=== PATIENT | male | born 1955 | race Caucasian/White ===

== ENCOUNTER → 2016-10-17 | Outpatient (CLI) | payer OTHER | LOC: LABWHC1 14:21 | PROVIDERS: ATTEND Urology | DX: R97.20 Elevated prostate specific antigen [PSA] (principal) | CPT/HCPCS: 36415; 84153 ==

== ENCOUNTER → 2018-04-22 | Outpatient (CLI) | payer BC ==
--- NOTE | 2018-04-22 18:28 | MR ---
EXAMINATION TYPE: MR knee LT wo con DATE OF EXAM: 04/22/2018 COMPARISON: None HISTORY: Lt knee pain x 8 mos, no trauma TECHNIQUE: Multiplanar, multisequence imaging of the left knee is performed without IV contrast. FINDINGS: MEDIAL MENISCUS: There is linear increased signal in the posterior horn of the medial meniscus which extends to the articular surface LATERAL MENISCUS: There is some abnormal diffuse increased signal in the posterior horn of the latera l meniscus possibly due to mucoid degeneration CRUCIATE LIGAMENTS: The anterior and posterior cruciate ligaments are intact and unremarkable. COLLATERAL LIGAMENTS: The medial collateral ligament and lateral collateral ligament complex are inta ct and unremarkable. EXTENSOR MECHANISM: Visualized quadriceps and patellar tendons are intact. EFFUSION: There is a suprapatellar joint effusion. POPLITEAL CYST: No popliteal/rossi cyst. TRICOMPARTMENT SPACES: Joint space loss present in the medial compartment CARTILAGE: Grade IV chondromalacia medial compartment, grade 3 to grade IV chondromalacia posterior p atella BONE MARROW SIGNAL: Reactive marrow signal changes in the subchondral medial femoral condyle and prox imal tibia OTHER: Subcutaneous edema is present. Some edema signal present at the origin of the medial gastrocn emius tendon origin IMPRESSION: Osteoarthritis. Findings compatible with degenerative tear posterior horn medial meniscus . Possible strain or partial tear origin of the medial belly of the gastrocnemius.
== END | disposition home or self-care (01) ==
LOC: RADMRIMAIN 16:35
PROVIDERS: ATTEND Family Medicine
DX: M17.12 Unilateral primary osteoarthritis, left knee (principal)

== ENCOUNTER → 2018-05-12 | Outpatient (CLI) | payer BC ==
--- NOTE | 2018-05-12 11:43 | EST ---
EXERCISE STRESS AGE: 63 SEX: M HT: 5'6" WT: 195 PROTOCOL: Cardiolite Osbaldo Stress Test STAGE: II DURATION OF EXERCISE: 8:00 HEART RATE REST: 58 BLOOD PRESSURE REST: 154/95 MAXIMUM HEART RATE ACHIEVED: 142 MAXIMUM BLOOD PRESSURE: 175/103 85% MPHR: 134 100% MPHR: 158 METS: 9.7 INDICATIONS: Pre-operative. CLINICAL INFORMATION: Baseline EKG shows sinus rhythm, poor R-wave progression. Normal axis, normal intervals. Patient exercised on Osbaldo protocol for a total of 8 minutes, achieving 9 METS, 89% of predicted maximal heart rate without chest pain or diagnostic ST-segment depression. CONCLUSION: 1. Above-average exercise tolerance. 2. Negative stress test by EKG criteria. 3. Cardiolite portion of the stress test will be reported separately. MMODL / IJN: [id number] /
--- NOTE | 2018-05-12 11:54 | NM ---
EXAMINATION TYPE: NM stress cardiolite complete DATE OF EXAM: 05/12/2018 COMPARISON: NONE HISTORY: Precordial chest pain and abnormal EKG TECHNIQUE: After the intravenous administration of 9.63 mCi Tc 99m Sestamibi - Rest images obtained 41 minutes post injection. The patient exercised using a BEATRIZ protocol and 1 minute prior to peak exercise was injected with 25.7 mCi Tc 99m Sestamibi - Stress images obtained 10 minutes post injecti on. FINDINGS: Targeted heart rate was achieved during performance of the study. Review of stress and rest SPECT michelle ges demonstrates no distinct perfusion abnormality. Gated analysis shows normal wall motion with an estimated left ventricular ejection fraction of 68 %. IMPRESSION: No scintigraphic evidence for reversible ischemia
== END | disposition home or self-care (01) ==
LOC: RADNMMAIN 08:26
PROVIDERS: ATTEND Family Medicine
DX: R94.31 Abnormal electrocardiogram [ECG] [EKG] (principal)
CPT/HCPCS: 93017; 78452; A9500

== ENCOUNTER → 2018-05-15 | Outpatient (CLI) | payer BC ==
--- NOTE | 2018-05-16 11:19 | ECHOF ---
Referral Reason:R94.31 abnormal EKG MEASUREMENTS -------- HEIGHT: 391.2 cm WEIGHT: 39.5 kg BP: RVIDd: 3.2 cm (< 3.3) IVSd: 1.1 cm (0.6 - 1.1) LVIDd: 4.2 cm (3.9 - 5.3) LVPWd: 1.1 cm (0.6 - 1.1) IVSs: 1.5 cm LVIDs: 2.8 cm LVPWs: 1.4 cm LA Diam: 3.4 cm (2.7 - 3.8) LAESV Index (A-L): 12.78 ml/m Ao Diam: 3.1 cm (2.0 - 3.7) AV Cusp: 2.2 cm (1.5 - 2.6) MV EXCURSION: 18.048 mm (> 18.000) MV EF SLOPE: 61 mm/s (70 - 150) EPSS: 1.0 cm MV E Power: 1.00 m/s MV DecT: 192 ms MV A Power: 0.85 m/s MV E/A Ratio: 1.17 RAP: 5.00 mmHg RVSP: 31.23 mmHg FINDINGS -------- Sinus rhythm. This was a technically good study. The left ventricular size is normal. There is borderline concentric left ventricular hypertrophy. Overall left ventricular systolic function is normal with, an EF between 60 - 65 %. The right ventricle is normal in size. Normal LA size by volume 22+/-6 ml/m2. The right atrium is normal in size. The aortic valve is trileaflet and appears structurally normal. There is trace mitral regurgitation. Mild tricuspid regurgitation present. Right ventricular systolic pressure is normal at < 35 mmHg. Trace/mild (physiologic) pulmonic regurgitation. The aortic root size is normal. Normal inferior vena cava with normal inspiratory collapse consistent with estimated right atrial pre ssure of 5 mmHg. There is no pericardial effusion. CONCLUSIONS -------- 1. Sinus rhythm. 2. This was a technically good study. 3. The left ventricular size is normal. 4. There is borderline concentric left ventricular hypertrophy. 5. Overall left ventricular systolic function is normal with, an EF between 60 - 65 %. 6. The right ventricle is normal in size. 7. Normal LA size by volume 22+/-6 ml/m2. 8. The right atrium is normal in size. 9. The aortic valve is trileaflet and appears structurally normal. 10. There is trace mitral regurgitation. 11. Mild tricuspid regurgitation present. 12. Right ventricular systolic pressure is normal at < 35 mmHg. 13. Trace/mild (physiologic) pulmonic regurgitation. 14. The aortic root size is normal. 15. Normal inferior vena cava with normal inspiratory collapse consistent with estimated right atrial pressure of 5 mmHg. 16. There is no pericardial effusion. RUBBER BALL FINISHER: Elysia Lozano RDCS
== END ==
LOC: RADECHMAIN 16:24
PROVIDERS: ATTEND Family Medicine
DX: I07.1 Rheumatic tricuspid insufficiency (principal); I37.1 Nonrheumatic pulmonary valve insufficiency
CPT/HCPCS: 93306

== ENCOUNTER → 2019-01-01 | Outpatient (CLI) | payer BC ==
--- NOTE | 2019-01-01 22:37 | MR ---
EXAMINATION TYPE: MR shoulder RT wo con DATE OF EXAM: 01/01/2019 COMPARISON: NONE HISTORY: Lt shoulder pain/hx of dislocation April 20 TECHNIQUE: Multiplanar, multisequence imaging of the right shoulder is performed without contrast. FINDINGS: Rotator Cuff: Full thickness retracted tears of anterior two thirds supraspinatus tendon up to level of the acromion coronal image 15. Infraspinatus tendon remains intact. Intact subscapularis tendon. P erhaps mild fat replaced atrophy supraspinatus tendon. Acromioclavicular Joint: Moderate to severe narrowing and moderate capsular hypertrophy. Dystrophic a cromion morphology unremarkable. Glenohumeral Joint: High riding humeral head. Moderate to severe superior narrowing. Small effusion. Labrum: The superior labrum is blunted with increased signal. Biceps Tendon: The long head of biceps is in normal location within bicipital groove. Intra-articular portion is not well visualized. Bone marrow signal: No focal abnormal marrow signal is appreciated. Other: No additional significant abnormality is appreciated. IMPRESSION: Significant full-thickness retracted tear of at least the anterior half of the supraspina tus tendon.
== END | disposition home or self-care (01) ==
LOC: RADMRIMAIN 15:59
PROVIDERS: ATTEND Family Medicine
DX: M75.121 Complete rotator cuff tear or rupture of right shoulder, not specified as traumatic (principal)

== ENCOUNTER → 2019-05-08 | Outpatient (CLI) | payer BC ==
--- NOTE | 2019-05-09 18:32 | US ---
EXAMINATION TYPE: US prostate transrectal DATE OF EXAM: 05/08/2019 COMPARISON: NONE CLINICAL HISTORY: R97.20 Elevated PSA. elevated PSA. This examination was performed using the transrectal probe. EXAM MEASUREMENTS: Gland Size: 4.7 x 3.2 x 5.0 cm Volume: 39.3 Predicted PSA: 4.7 Actual PSA (if available):6.1 Heterogenous with calcifications seen. IMPRESSION: Heterogenous prostate gland. No discrete suspicious nodule on ultrasound. Predicted PSA = volume x 0.12 ng/ml Calculated Volume = 0.5236 x L x W x H
== END | disposition home or self-care (01) ==
LOC: RADUSWWP 06:44
PROVIDERS: ATTEND Family Medicine
DX: N42.89 Other specified disorders of prostate (principal); R97.20 Elevated prostate specific antigen [PSA]
CPT/HCPCS: 76872

== ENCOUNTER 2021-03-17 04:09 | Inpatient (IN) | payer BC, MEDICARE ==
[2021-03-17] MEDS ORDERED: SODIUM CHLORIDE 0.9% 1,000 ML IV STA (04:37)
[2021-03-17] MEDS ORDERED: NITROGLYCERIN SL TABS 0.4 MG TAB SUBLINGUAL PRN ×2 (04:37→06:31)
[2021-03-17] MEDS ORDERED: ASPIRIN 81 MG PO STA ×2 (04:37)
[2021-03-17] MEDS ORDERED: NITROGLYCERIN SL TABS 0.4 MG TAB SUBLINGUAL STA (04:37)
[2021-03-17] MEDS ORDERED: MORPHINE SULFATE 4 MG/ML SYRINGE IV STA (04:37)
[2021-03-17] MEDS ORDERED: MORPHINE SULFATE 4 MG/ML SYRINGE IV PRN (04:37)
--- NOTE | 2021-03-17 04:41 | ED ---
Chest Pain HPI - General Chief Complaint: Chest Pain Stated Complaint: Chest Pain Time Seen by Provider: 03/17/21 04:12 Source: patient, RN notes reviewed, old records reviewed Mode of arrival: ambulatory Limitations: no limitations - History of Present Illness Initial Comments: This is a 66-year-old male to the emergency department for evaluation of chest. Patient originally presented to primary care early this morning with chest pain on first offices of the day. Some bedtime regards to his doctor's office chest pain resolved he did have labs and EKG done EKG done at that time of her normal. Patient was called later in the day for abnormal lab values unsure of which. Patient presents to ER tonight chest pain beginning this evening persistin gpatient has no history of high blood pressure high cholesterol or diabetes. Nonsmoker with no significant family history MD Complaint: chest pain -: hour(s) Onset: during rest Pain Location: substernal, left chest Pain Radiation: LUE Severity: severe Severity scale (1-10): 8 Quality: tightness, heaviness Consistency: intermittent Improves With: nothing Worsens With: nothing Anginal Symptoms: diaphoresis, dyspnea Other Symptoms: palpitations Treatments Prior to Arrival: none - Related Data Home Medications Medication Instructions Recorded Confirmed Albuterol Sulfate [Ventolin HFA] 90 mcg PO DAILY PRN 05/10/15 05/12/15 Cholecalciferol [Vitamin D3] 2,000 unit PO DAILY 05/10/15 05/12/15 Multivitamins, Thera [Multivitamin] 1 tab PO DAILY 05/10/15 05/12/15 Ranitidine HCl [Zantac] 150 mg PO BID 05/10/15 05/12/15 Allergies Allergy/AdvReac Type Severity Reaction Status Date / Time No Known Allergies Allergy Verified 03/17/21 04:18 Review of Systems ROS Statement: Those systems with pertinent positive or pertinent negative responses have been documented in the HPI. ROS Other: All systems not noted in ROS Statement are negative. EKG Findings - EKG Comments: EKG Findings:: EKG shows acute ST elevated ID, inferior ST elevation with anterior ST depression Past Medical History Past Medical History: Cancer, Pneumonia Additional Past Medical History / Comment(s): bladder History of Any Multi-Drug Resistant Organisms: None Reported Past Surgical History: Bladder Surgery Additional Past Surgical History / Comment(s): bladder ca sx, "kidney scope" Past Anesthesia/Blood Transfusion Reactions: No Reported Reaction Past Psychological History: No Psychological Hx Reported Smoking Status: Former smoker Past Alcohol Use History: Daily Past Drug Use History: None Reported - Past Family History Mother Family Medical History: Cancer, Diabetes Mellitus Additional Family Medical History / Comment(s): ovarian ca "something to do with her reproductive"; heart murmur Father Additional Family Medical History / Comment(s): AAA General Exam Limitations: no limitations General appearance: anxious Head exam: Present: atraumatic, normocephalic, normal inspection Eye exam: Present: normal appearance, PERRL, EOMI. Absent: scleral icterus, conjunctival injection, periorbital swelling ENT exam: Present: normal exam, mucous membranes moist Neck exam: Present: normal inspection. Absent: tenderness, meningismus, lymphadenopathy Respiratory exam: Present: normal lung sounds bilaterally. Absent: respiratory distress, wheezes, rales, rhonchi, stridor Cardiovascular Exam: Present: regular rate, normal rhythm, normal heart sounds. Absent: systolic murmur, diastolic murmur, rubs, gallop, clicks GI/Abdominal exam: Present: soft, normal bowel sounds. Absent: distended, tenderness, guarding, rebound, rigid Extremities exam: Present: normal inspection, full ROM, normal capillary refill. Absent: tenderness, pedal edema, joint swelling, calf tenderness Back exam: Present: normal inspection Neurological exam: Present: alert, oriented X3, CN II-XII intact Psychiatric exam: Present: normal affect, normal mood Skin exam: Present: warm, dry, intact, normal color. Absent: rash Course Vital Signs 03/17/21 03/17/21 03/17/21 04:11 04:38 04:43 Temperature 98.1 F 97.7 F Pulse Rate 74 71 61 Respiratory 18 16 18 Rate Blood Pressure 177/142 189/133 186/120 O2 Sat by Pulse 100 100 100 Oximetry 03/17/21 03/17/21 05:02 05:11 Temperature Pulse Rate 67 68 Respiratory 16 16 Rate Blood Pressure 148/96 131/81 O2 Sat by Pulse 100 100 Oximetry - Reevaluation(s) Reevaluation #1: 03/17/21 04:57 Medical record is reviewed STEMI was paged on patient arrival Reevaluation #2: 03/17/21 05:57 Blood pressure is improved pain is controlled Reevaluation #3: 03/17/21 05:57 Patient informed results, questions answered - Consultations Consultation #1: Spoke with Dr. 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 Patient has CTA negative for dissection elevated blood pressure now improved ST elevation ID on EKG Critical Care Time Critical Care Time: Yes Total Critical Care Time: 31 Disposition Clinical Impression: Chest pain, ST elevation myocardial infarction (STEMI) Disposition: ADMITTED IP TO THIS HOSP Condition: Serious Is patient prescribed a controlled substance at d/c from ED?: No
[2021-03-17] MEDS ORDERED: LABETALOL 5 MG/ML VIAL MDV IVP STA (04:53)
[2021-03-17] MEDS: ATORVASTATIN 80 MG TAB PO SCH (05:01)
[2021-03-17 05:02] LABS: Basophils % (A) 0 %; Eosinophils # (A) 0.2 k/uL (0-0.7); Eosinophils % (A) 3 %; HCT 52.5 % (39.0-53.0); HGB 18.1 gm/dL (13.0-17.5); Lymphocytes # (A) 1.7 k/uL (1.0-4.8); Lymphocytes % (A) 21 %; MCHC 34.5 g/dL (31.0-37.0); MCV 98.5 fL (80.0-100.0); Monocytes # (A) 0.4 k/uL (0-1.0); Monocytes % (A) 4 %; Neutrophils # (A) 5.7 k/uL (1.3-7.7); Neutrophils % (A) 70 %; Platelet Count 281 k/uL (150-450); RBC 5.33 m/uL (4.30-5.90); RDW 12.1 % (11.5-15.5); WBC 8.2 k/uL (3.8-10.6)
[2021-03-17] MEDS ORDERED: VERAPAMIL 2.5 MG/ML 2 ML AMP ONE (05:03)
[2021-03-17] MEDS ORDERED: HEPARIN SODIUM 1,000 UN/ML (10ML VL) ONE ×2 (05:03→05:57)
[2021-03-17] MEDS ORDERED: LIDOCAINE 1% INJ 10MG/ML (20 ML MDV) ONE (05:03)
[2021-03-17] MEDS ORDERED: SODIUM CHLORIDE 0.9% 1,000 ML IV ONE ×2 (05:15→06:00)
[2021-03-17] MEDS: MIDAZOLAM 2 MG/2 ML VIAL IV ONE ×2 (05:20→05:41)
[2021-03-17] MEDS: fentaNYL (PF) 50 MCG/ML 5 ML AMP IV ONE ×2 (05:20→05:41)
[2021-03-17 05:22] LABS: INR 1.1 (<1.2); Partial Thromboplastin Time 24.7 sec (22.0-30.0); Prothrombin Time 11.2 sec (9.0-12.0)
[2021-03-17] MEDS ORDERED: LIDOCAINE 1% INJ 10MG/ML (20 ML MDV) SQ ONE (05:22)
[2021-03-17 05:25] LABS: Calcium 10.5 mg/dL (8.4-10.2); Total Bilirubin 0.6 mg/dL (0.2-1.3); Total Protein 8.1 g/dL (6.3-8.2)
[2021-03-17] MEDS ORDERED: VERAPAMIL SYRINGE (5 MG/10 ML) INTRAARTER ONE (05:25)
--- NOTE | 2021-03-17 05:25 | CT ---
EXAMINATION TYPE: CT angio thor/abd pel aorta DATE OF EXAM: 03/17/2021 COMPARISON: CT scan 09/30/2013 and 10/17/2012 HISTORY: R/o dissection CT DLP: 1636.7 mGycm Automated exposure control for dose reduction was used. CONTRAST: Performed with IV Contrast, patient injected with 100 mL of Isovue 370. Images obtained from the thoracic inlet to the floor the pelvis with IV contrast. The lungs are clear of consolidation. There is no pleural effusion. Heart size is fairly normal. Ther e is no pericardial effusion. There is normal enhancement of the pulmonary arteries. Thoracic aorta a ppears intact. The ascending aorta measures 3.8 cm. There is no aneurysm or dissection. There are no hilar masses. There is no mediastinal adenopathy. There is normal branching pattern of the great vess els on the aortic arch. There is only 1 vessel in the upper abdomen from the anterior abdominal aorta which is combined super ior mesenteric artery and celiac artery. There is some mild atheromatous changes in the abdominal aor ta. There is no aneurysm or dissection. There is no evidence of hemodynamic stenosis. There is arteri al flow in both renal arteries. There is arterial flow in the iliac and femoral arteries. There is no evidence of contrast extravasat ion. Liver spleen pancreas gallbladder appear intact. Stomach is intact. There are small hepatic cysts. Ki dneys show satisfactory contrast opacification. There is no hydronephrosis. Appendix appears normal. There is no retroperitoneal adenopathy. IMPRESSION: Negative CT angiogram of the chest abdomen pelvis. No evidence of arterial aneurysm or dissection. No evidence of hemodynamic stenosis. 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
[2021-03-17] MEDS ORDERED: TICAGRELOR 90 MG TAB ONE (05:28)
[2021-03-17] MEDS ORDERED: TICAGRELOR 90 MG TAB PO ONE (05:34)
[2021-03-17] MEDS: NITROGLYCERIN 1000MCG/10ML SYRINGE INTRACORON ONE ×3 (05:35→06:06)
[2021-03-17] MEDS ORDERED: IOPAMIDOL-370 125ML BTL INJ ONE (06:08)
[2021-03-17] MEDS ORDERED: ZOLPIDEM 5 MG TAB PO PRN (06:31)
[2021-03-17] MEDS ORDERED: MAG HYDROX/AL HYDROX/SIMETH 30 ML CUP PO PRN (06:31)
[2021-03-17] MEDS ORDERED: ATROPINE SULFATE 0.1 MG/ML 10ML SYRINGE IV PRN (06:31)
[2021-03-17] MEDS ORDERED: RX INFO: IV CONTRAST WAS GIVEN 1 EACH MISC MISCELLANE PRN (06:31)
--- NOTE | 2021-03-17 06:31 | P.CARDCATH ---
Description of Procedure: HISTORY OF PRESENTING ILLNESS This is a pleasant 66-year-old with past medical history significant for bladder cancer and otherwise no medical history presents secondary to chest pain for one week. 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 He states it has been off and on for one week. He denies any associated nausea or diaphoresis however did have some dyspnea. He denies any cough however states that it somehow felt similar to pneumonia in the past and therefore did not seek medical care until yesterday. He went to his primary care physician's office who apparently performed an EKG and blood work and then he went home. The chest pain had improved somewhat when he went to sleep however then was awoken at approximately 2 AM with worsened 8/10 chest pain and also at that time had checked his phone which had a voicemail stating that some of the blood work was abnormal and therefore to go to the hospital. He presented to Hospital and was found to have Q waves inferiorly with ST elevation and reciprocal changes. His blood pressure was extremely high with diastolics into the 130s to 140s and therefore ER performed a CAT scan to rule out dissection which showed no dissection. He therefore was taken of the Division Director where he was found to have 100% RCA stenosis with a long lesion and underwent successful PCI with overlapping 4.0 x 38 mm and 3.5 x 38 mm drug-eluting stents. He had an additional small sized OM 1 95% stenosis however given contrast threshold reached this was deferred treatment at this time. LVEDP was noted to be elevated at 25. REVIEW OF SYSTEMS At the time of my exam: CONSTITUTIONAL: Denies fever or chills. CARDIOVASCULAR: Denies chest pain, shortness of breath, orthopnea, PND or palpi tations. RESPIRATORY: Denies cough. GASTROINTESTINAL: Denies abdominal pain, diarrhea, constipation, nausea or vomiting. MUSCULOSKELETAL: Denies myalgias. NEUROLOGIC: Denies numbness, tingling or weakness. ENDOCRINE: Denies fatigue, weight change, polydipsia or polyurina. GENITOURINARY: Denies burning, hematuria or urgency with micturation. HEMATOLOGIC: Denies history of anemia or bleeding. PHYSICAL EXAMINATION Vital signs reviewed. CONSTITUTIONAL: Mild distress. HEENT: Head is normocephalic. Pupils are equal, round. Sclerae anicteric. Mucous membranes of the mouth are moist. No JVD. No carotid bruit. CHEST EXAMINATION: Lungs are clear to auscultation. No chest wall tenderness is noted on palpation or with deep breathing. HEART EXAMINATION: Regular rate and rhythm. S1, S2 heard. No murmurs, gallops or rub. ABDOMEN: Soft, nontender. Positive bowel sounds. EXTREMITIES: 2+ peripheral pulses, no lower extremity edema and no calf tenderness. NEUROLOGIC EXAMINATION: Patient is awake, alert and oriented x3. ASSESSMENT 1. Inferior STEMI, late presenting 2. Coronary artery disease with additional residual OM1 95% stenosis 3. Hypertension, extremely elevated on presentation 4. Hyperlipidemia 5. History of bladder cancer, in remission per patient 6. Elevated LVEDP PLAN Patient had successful PCI of the RCA with a long overlapping stents. Inferior ST elevations improved somewhat however still does have Q waves. Check 2-D echo. Continue dual antiplatelets for 12 months. Consider staging OM1 however does appear to be a small artery. Monitor kidney function given contrast load. Gentle IV fluids given elevated LVEDP 25.
[2021-03-17 06:41] LABS: Glucose,Whole Blood 160 mg/dL (75-99)
--- NOTE | 2021-03-17 06:42 | P.PRCINT ---
Percutaneous Coronary Int. - Percutaneous Coronary Intervention Percutaneous Coronary Intervention: PROCEDURES PERFORMED: Left heart catheterization, bilateral coronary angiography, PCI RCA with overlapping 4.0 x 38 mm and 3.5 x 38 mm Xience SHARON, Penumbra aspiration thrombectomy INDICATION: Inferior STEMI HISTORY: Patient is a pleasant 66-year-old male with history of bladder cancer in remission who presented with chest pain for one week which has been off and on however worse at 2 AM and was found to have inferior ST elevation. Therefore emergent heart catheterization was recommended. CONSENT:I have discussed the risks, benefits and alternative therapies for the above-mentioned procedure and for both sedation/analgesia as well as necessary blood product administration, if indicated, as they pertain to this patient. The patient has indicated understanding and acceptance of the risks and procedures discussed. PROCEDURE: After the risks, benefits and alternatives of the above mentioned procedure explained in detail with the patient, informed consent was obtained. Patient was taken to the catheterization lab and prepped and draped in usual fashion. 1% lidocaine was used to anesthetize the right radial artery. A 6- Indonesian sheath was placed in the right radial artery using modified Seldinger elizabeth hnique. A 6-Indonesian AL 0.75 guide was used to engage the RCA and angiography was performed. The decision was made to perform PCI of the RCA. A 0.014 BMW wire was advanced into the distal RCA. Heparin was given for ACT greater than 250. Balloon angioplasty was performed with a 2.5 x 12 and then a 3.0 x 15 mm balloon. There was extensive disease noted throughout the entire RCA and therefore long stenting was recommended. Next with the help of a guideliner overlapping 4.0 x 38 mm proximally and 3.5 x 38 mm Xience SHARON were placed. Preintervention there was CARIN 0 flow and 100% stenosis and postintervention there is CARIN-3 flow with rest and 10% stenosis. Left coronary angiography was performed with a 5-Indonesian JL 3.5 catheter in various views. A 5-Indonesian FL3.5 catheter was inserted into the left ventricle and pressure measurements were obtained. The right radial sheath was removed and a TR band was placed with hemostasis achieved. The patient tolerated the procedure well. Patient was transported back to the post catheterization holding area in stable condition. Conscious Sedation: Patient was monitored under the direct supervision of vision of myself for conscious sedation using Versed and fentanyl for a total duration of 58 minutes HEMODYNAMICS: Aortic: 137/78 LV: 128/88, LVEDP 25 SELECTIVE CORONARY ARTERIOGRAPHY: LEFT MAIN: The left main is a large caliber vessel which bifurcates into the LAD and circumflex. There is mild 10% left main stenosis. LEFT ANTERIOR DESCENDING CORONARY ARTERY: LAD is a large caliber vessel which wraps around to the apex. There is proximal LAD 10-20% and mid LAD 20-30% stenosis. LEFT CIRCUMFLEX CORONARY ARTERY: Left circumflex is a moderate caliber vessel. It gives off a small caliber OM1 branch that has a 95% stenosis. OM1 appears to be around 2.0 mm in size. RIGHT CORONARY ARTERY: The right coronary artery is a large caliber vessel which gives off a PDA and PLV branch and is the dominant vessel. There is 100% stenosis and after angioplasty was seen to have diffuse proximal or distal 50- 95% stenosis. FINAL IMPRESSION: 1. CAD as described above including 100% RCA stenosis status post PCI RCA with overlapping 4.0 x 38 mm and 3.5 x 38 mm Xience SHARON 2. Residual 95% stenosis OM1 3. Normal left sided filling pressures PLAN: 1. Aggressive risk factor modification per most recent ACC/AHA guidelines. 2. Continue dual antiplatelets for 12 months. 3. Consider staged PCI of OM1.
[2021-03-17] MEDS ORDERED: SODIUM CHLORIDE 0.9% 1,000 ML IV SCH (06:45)
[2021-03-17] MEDS: SODIUM CHLORIDE 0.9% 1,000 ML IV SCH (08:49)
[2021-03-17] MEDS: METOPROLOL TARTRATE 50 MG TAB PO SCH ×2 (08:59→20:14)
--- NOTE | 2021-03-17 09:30 | P.HPIM ---
History of Present Illness H&P Date: 03/17/21 66-year-old male with past medical history of bladder in remission admitted to the hospital. Been going on and off for last several days gets severe over the last day or so the patient came to the hospital was found to have ST elevation DE underwent urgent cath and stenting Review of systems and systems has been reviewed all negative and positive findings as per history of present illness Constitutional: No acute distress, conversant, pleasant Eyes: Anicteric sclerae, moist conjunctiva, no lid-lag PERRLA ENMT: NC/AT Oropharynx clear, no erythema, exudates Neck: Supple, FROM, no masses, or JVD No carotid bruits No thyromegaly Lungs: Clear to auscultation Clear to percussion Normal respiratory effort, no accessory muscle use Cardiovascular: Heart regular in rate and rhythm, No murmurs, gallops, or rubs No peripheral edema Abdominal: Soft Nontender, no guarding, rebound or rigidity Abdomen moving with respiration Normoactive bowel sounds No hepatomegaly, No splenomegaly No pal pable mass No abdominal wall hernia noted Skin: Normal temperature, tone, texture, turgor No induration No subcutaneous nodules No rash, lesions No ulcers Extremities: No digital cyanosis No clubbing Pedal pulses intact and symmetrical Radial pulses intact and symmetrical Normal gait and station No calf tenderness Psychiatric:Alert and oriented to person, place and time Appropriate affect Intact judgement Neuro: Muscles Strength 5/5 in all 4 extremities Sensation to light touch grossly present throughout Cranial nerves II-XII grossly intact No focal sensory deficits Assessment and plan st elevation DE status post stent History of bladder cancer Continue to monitor in the intensive care unit Continue management as per cardiology Past Medical History Past Medical History: Cancer, Pneumonia Additional Past Medical History / Comment(s): bladder History of Any Multi-Drug Resistant Organisms: None Reported Past Surgical History: Bladder Surgery Additional Past Surgical History / Comment(s): bladder ca sx, "kidney scope" Past Anesthesia/Blood Transfusion Reactions: No Reported Reaction Past Psychological History: No Psychological Hx Reported Smoking Status: Former smoker Past Alcohol Use History: Daily Past Drug Use History: None Reported - Past Family History Mother Family Medical History: Cancer, Diabetes Mellitus Additional Family Medical History / Comment(s): ovarian ca "something to do with her reproductive"; heart murmur Father Additional Family Medical History / Comment(s): AAA Medications and Allergies Home Medications Medication Instructions Recorded Confirmed Type Albuterol Sulfate [Ventolin HFA] 90 mcg PO DAILY PRN 05/10/15 05/12/15 History Cholecalciferol [Vitamin D3] 2,000 unit PO DAILY 05/10/15 05/12/15 History Multivitamins, Thera [Multivitamin] 1 tab PO DAILY 05/10/15 05/12/15 History Ranitidine HCl [Zantac] 150 mg PO BID 05/10/15 05/12/15 History Allergies Allergy/AdvReac Type Severity Reaction Status Date / Time No Known Allergies Allergy Verified 03/17/21 04:18 Physical Exam Vitals: Vital Signs Temp Pulse Resp BP Pulse Ox 03/17/21 08:30 58 L 20 152/99 99 03/17/21 08:00 98.4 F 63 17 156/83 96 03/17/21 07:45 55 L 10 L 132/87 99 03/17/21 07:30 68 15 131/79 98 03/17/21 07:15 56 L 12 132/81 99 03/17/21 07:00 98.6 F 54 L 8 L 112/78 99 03/17/21 05:11 68 16 131/81 100 03/17/21 05:02 67 16 148/96 100 03/17/21 04:43 97.7 F 61 18 186/120 100 03/17/21 04:38 71 16 189/133 100 03/17/21 04:11 98.1 F 74 18 177/142 100 Intake and Output 03/16/21 03/17/21 03/17/21 22:59 06:59 14:59 Intake Total 970 80 Output Total 100 Balance 970 -20 Intake: IV 970 Intake, IV Titration 80 Amount Sodium Chloride 0.9% 1, 80 000 ml @ 40 mls/hr IV . Q24H [facility] Rx#:[id number] Output: Urine 100 Other: Weight 90.718 kg Results CBC & Chem 7: 03/17/21 04:35 03/17/21 04:35 Labs: Abnormal Lab Results - Last 24 Hours (Table) 03/17/21 03/17/21 03/17/21 Range/Units 04:35 04:35 04:35 Hgb 18.1 H (13.0-17.5) gm/dL BUN 23 H (9-20) mg/dL Creatinine 1.34 H (0.66-1.25) mg/dL Glucose 181 H (74-99) mg/dL POC Glucose (mg/dL) (75-99) mg/dL Calcium 10.5 H (8.4-10.2) mg/dL Troponin I 0.777 H* (0.000-0.034) ng/mL 03/17/21 03/17/21 Range/Units 06:40 07:55 Hgb (13.0-17.5) gm/dL BUN (9-20) mg/dL Creatinine (0.66-1.25) mg/dL Glucose (74-99) mg/dL POC Glucose (mg/dL) 160 H (75-99) mg/dL Calcium (8.4-10.2) mg/dL Troponin I 45.200 H* (0.000-0.034) ng/mL
--- NOTE | 2021-03-17 10:33 | ECHOF ---
Referral Reason:mi MEASUREMENTS -------- HEIGHT: 167.6 cm WEIGHT: 90.7 kg BP: 131/81 RVIDd: 3.2 cm (< 3.3) IVSd: 1.3 cm (0.6 - 1.1) LVIDd: 3.8 cm (3.9 - 5.3) LVPWd: 1.9 cm (0.6 - 1.1) IVSs: 2.0 cm LVIDs: 2.7 cm LVPWs: 1.7 cm LAESV Index (A-L): 23.91 ml/m Ao Diam: 3.3 cm (2.0 - 3.7) AV Cusp: 2.0 cm (1.5 - 2.6) LA Diam: 3.8 cm (2.7 - 3.8) MV EXCURSION: 23.063 mm (> 18.000) MV EF SLOPE: 126 mm/s (70 - 150) EPSS: 1.0 cm MV E Power: 0.52 m/s MV DecT: 211 ms MV A Power: 0.78 m/s MV E/A Ratio: 0.66 RAP: 5.00 mmHg RVSP: 24.73 mmHg FINDINGS -------- Sinus rhythm. This was a technically difficult study with suboptimal views. The left ventricular size is normal. There is mild concentric left ventricular hypertrophy. Overa ll left ventricular systolic function is mildly impaired with, an EF between 45 - 50 %. Basal later al LV wall motion is hypokinetic. Mid lateral LV wall motion is hypokinetic. Mid inferior LV wa ll motion is hypokinetic. The right ventricle is normal in size. Normal LA size by volume 22+/-6 ml/m2. The right atrium was not well visualized. 3.0mg of Lumason was utilized for enhancement of images Interatrial and interventricular septum intact. There is no evidence of aortic regurgitation. There is no evidence of aortic stenosis. Mild mitral regurgitation is present. Mild tricuspid regurgitation present. There is no evidence of pulmonary hypertension. The right v entricular systolic pressure, as measured by Doppler, is 24.73mmHg. Trace/mild (physiologic) pulmonic regurgitation. The aortic root size is normal. IVC Not well visulized. Echo free space represents a pericardial fat pad. There is no pericardial effusion. CONCLUSIONS -------- 1. The left ventricular size is normal. 2. There is mild concentric left ventricular hypertrophy. 3. Overall left ventricular systolic function is mildly impaired with, an EF between 45 - 50 %. 4. Basal lateral LV wall motion is hypokinetic. 5. Mid lateral LV wall motion is hypokinetic. 6. Mid inferior LV wall motion is hypokinetic. 7. Mild mitral regurgitation is present. 8. Mild tricuspid regurgitation present. 9. Trace/mild (physiologic) pulmonic regurgitation. SVP MONETIZATION: Socorro Gardner RDCS
[2021-03-17] MEDS ORDERED: FAMOTIDINE 20 MG TAB PO SCH (12:15)
[2021-03-17] MEDS: AZITHROMYCIN 500 MG TAB PO SCH (12:44)
[2021-03-17] MEDS: TAMSULOSIN 0.4 MG CAP.ER.24H PO SCH (12:44)
[2021-03-17 13:21] VITALS: BMI 32.3
[2021-03-17] MEDS: FAMOTIDINE 20 MG TAB PO SCH (20:14)
[2021-03-17] MEDS: TICAGRELOR 90 MG TAB PO SCH (20:14)
[2021-03-18 03:45] LABS: Basophils % (A) 0 %; Eosinophils # (A) 0.2 k/uL (0-0.7); Eosinophils % (A) 2 %; HCT 45.9 % (39.0-53.0); HGB 15.4 gm/dL (13.0-17.5); Lymphocytes # (A) 1.1 k/uL (1.0-4.8); Lymphocytes % (A) 12 %; MCH 33.6 pg (25.0-35.0); MCHC 33.6 g/dL (31.0-37.0); MCV 100.2 fL (80.0-100.0); Mean Platelet Volume 6.8; Monocytes # (A) 0.6 k/uL (0-1.0); Monocytes % (A) 6 %; Neutrophils # (A) 7.5 k/uL (1.3-7.7); Neutrophils % (A) 78 %; Platelet Count 243 k/uL (150-450); RBC 4.58 m/uL (4.30-5.90); WBC 9.6 k/uL (3.8-10.6)
[2021-03-18 04:04] LABS: ALT 50 U/L (4-49); AST 161 U/L (17-59); African American GFR (CKD) 77 (>60 ml/min/1.73 sqM); Alkaline Phosphatase 58 U/L (38-126); Anion Gap 8 mmol/L; Blood Urea Nitrogen 20 mg/dL (9-20); Calcium 10.1 mg/dL (8.4-10.2); Carbon Dioxide 26 mmol/L (22-30); Chloride 103 mmol/L (98-107); Glucose 114 mg/dL (74-99); Non-African American GFR(CKD) 66 (>60 ml/min/1.73 sqM); Potassium 4.4 mmol/L (3.5-5.1); Sodium 137 mmol/L (137-145); Total Bilirubin 0.4 mg/dL (0.2-1.3); Total Protein 6.5 g/dL (6.3-8.2)
[2021-03-18] MEDS: SODIUM CHLORIDE 0.9% 1,000 ML IV SCH (06:41)
[2021-03-18] MEDS: ATORVASTATIN 80 MG TAB PO SCH (08:33)
[2021-03-18] MEDS: AZITHROMYCIN 500 MG TAB PO SCH (08:33)
[2021-03-18] MEDS: METOPROLOL TARTRATE 50 MG TAB PO SCH ×2 (08:33→20:46)
[2021-03-18] MEDS: ASPIRIN 81 MG PO SCH (08:33)
[2021-03-18] MEDS: TICAGRELOR 90 MG TAB PO SCH ×2 (08:34→20:46)
[2021-03-18] MEDS: TAMSULOSIN 0.4 MG CAP.ER.24H PO SCH (08:34)
[2021-03-18] MEDS ORDERED: ASPIRIN 325 MG TAB PO SCH (09:00)
--- NOTE | 2021-03-18 11:23 | PN ---
PROGRESS NOTE Mr. Morrison is a 66-year-old male who presented with an acute inferior myocardial infarction. Underwent stenting of the totally occluded right coronary artery by Dr. Lozano with two stents. He is doing well this morning. He denies any chest pain. His breathing has been stable. He denies any dizziness or palpitation. At the same time he was found to have critical stenosis in the obtuse marginal branch. He is in sinus mechanism without any malignant arrhythmia. He continues to be on aspirin once a day, Lipitor 80 mg daily, metoprolol tartrate 50 mg twice a day, Brilinta 90 mg twice a day. PHYSICAL EXAMINATION: Blood pressure 130/80 with a heart rate of 60. LUNGS: Clear. HEART: Regular rate and rhythm. S1, S2. No S3, with systolic murmur at the base, no diastolic murmur. ABDOMEN: Soft, nontender. Positive bowel sounds. No organomegaly. EXTREMITIES: No edema. Right radial pulse intact. Echocardiogram revealed an ejection fraction 45-50% with basolateral and inferolateral wall hypokinesis with mild mitral and tricuspid regurgitation. LAB DATA: Lab data revealed troponin peak of 70. BUN and creatinine of 20 and 1.16, potassium 4.4, hemoglobin of 15.4. IMPRESSION: 1. Status post acute inferolateral wall myocardial infarction with stenting of the RCA. 2. Obstructive disease in the left circumflex. 3. Hypertension on presentation. 4. Hyperlipidemia. 5. History of bladder cancer in remission. RECOMMENDATIONS: From the cardiac standpoint I will continue present therapy. He will be started on an ALESSANDRA inhibitor. He will be transferred to telemetry floor. His activity will be increased. The patient will require percutaneous revascularization of the obtuse marginal branch that can be done at a later time. Depending on his progress, further recommendations will be made. MMODL / IJN: [id number] /
[2021-03-18 13:18] LABS: Chol/HDL Ratio 3.93 Ratio
--- NOTE | 2021-03-18 13:46 | P.PN ---
Subjective Progress Note Date: 03/18/21 Patient seen and examined at bedside. Patient is awake alert and will be transferred out of the ICU today. Patient denies chest pain shortness of breath nausea vomiting fever or chills. Patient is PTCA 1. Objective - Vital Signs Vital signs: Vital Signs Temp 98.8 F 03/18/21 04:00 Pulse 54 L 03/18/21 13:00 Resp 17 03/18/21 13:00 BP 88/58 03/18/21 13:00 Pulse Ox 98 03/18/21 11:12 Intake & Output 03/17/21 03/18/21 03/18/21 18:59 06:59 18:59 Intake Total 320 1070 Output Total 600 350 0 Balance -280 -350 1070 Weight 90.718 kg 92 kg Intake: Intake, IV Titration 320 Amount Sodium Chloride 0.9% 1, 320 000 ml @ 40 mls/hr IV . Q24H [facility] Rx#:[id number] Oral 1070 Output: Urine 600 350 0 Other: Voiding Method Urinal Urinal Urinal # Voids 1 1 1 # Bowel Movements 1 - Exam General: [non toxic], [no distress], [appears at stated age] Derm: [warm], [dry] Head: [atraumatic], [normocephalic], [symmetric] Eyes: [EOMI], [no lid lag], [anicteric sclera] Mouth: [no lip lesion], [mucus membranes moist] Cardiovascular: [S1S2 reg], [no murmur], [positive posterior tibial pulse bilateral], Lungs: [CTA bilateral], [no rhonchi, no rales] , [no accessory muscle use] Abdominal: [soft], [ nontender to palpation], [no guarding], [no appreciable organomegaly] Ext: [no gross muscle atrophy], [no edema], [no contractures] Neuro: [ CN II-XI grossly intact], [no focal neuro deficits] Psych: [Alert], [oriented], [appropriate affect] - Labs CBC & Chem 7: 03/18/21 03:17 03/18/21 03:17 Labs: Abnormal Lab Results - Last 24 Hours (Table) 03/18/21 03/18/21 Range/Units 03:17 03:17 MCV 100.2 H (80.0-100.0) fL Glucose 114 H (74-99) mg/dL AST 161 H (17-59) U/L ALT 50 H (4-49) U/L Assessment and Plan Plan: 1. ST elevation SD status post stent Continue management as per cardiology 2. History of bladder cancer 3. A.m. labs 4. GI DVT prophylaxis 5. DC planning in a.m.
[2021-03-18] MEDS: FAMOTIDINE 20 MG TAB PO SCH (20:46)
[2021-03-19] MEDS: SODIUM CHLORIDE 0.9% 1,000 ML IV SCH (04:03)
[2021-03-19 08:28] LABS: Basophils # (A) 0.1 k/uL (0-0.2); Basophils % (A) 1 %; Eosinophils # (A) 0.2 k/uL (0-0.7); Eosinophils % (A) 3 %; HCT 46.2 % (39.0-53.0); HGB 15.7 gm/dL (13.0-17.5); Lymphocytes # (A) 1.4 k/uL (1.0-4.8); Lymphocytes % (A) 19 %; MCH 33.6 pg (25.0-35.0); MCV 98.8 fL (80.0-100.0); Monocytes # (A) 0.5 k/uL (0-1.0); Monocytes % (A) 7 %; Neutrophils # (A) 5.1 k/uL (1.3-7.7); Neutrophils % (A) 69 %; Platelet Count 233 k/uL (150-450); RBC 4.68 m/uL (4.30-5.90); RDW 12.1 % (11.5-15.5); WBC 7.4 k/uL (3.8-10.6)
[2021-03-19 08:40] LABS: Albumin 4.1 g/dL (3.5-5.0); Calcium 10.2 mg/dL (8.4-10.2); Potassium 4.3 mmol/L (3.5-5.1); Total Bilirubin 0.5 mg/dL (0.2-1.3); Total Protein 6.9 g/dL (6.3-8.2)
[2021-03-19] MEDS: TAMSULOSIN 0.4 MG CAP.ER.24H PO SCH (08:42)
[2021-03-19] MEDS: METOPROLOL TARTRATE 50 MG TAB PO SCH (08:42)
[2021-03-19] MEDS: ATORVASTATIN 80 MG TAB PO SCH (08:42)
[2021-03-19] MEDS: TICAGRELOR 90 MG TAB PO SCH (08:42)
[2021-03-19] MEDS: AZITHROMYCIN 500 MG TAB PO SCH (08:42)
[2021-03-19] MEDS: ASPIRIN 81 MG PO SCH (08:42)
[2021-03-19] MEDS ORDERED: lisinopriL 5 MG TAB PO SCH (09:00)
--- NOTE | 2021-03-19 09:09 | P.DS ---
Providers Date of admission: 03/17/21 04:37 Expected date of discharge: 03/19/21 Attending physician: Ngoc Friedman MD Consults: 03/17/21 04:37 Consult Physician Urgent Consulting Provider: Thien Stoner Consult Reason/Comments: stemi Do you want consulting provider notified?: Yes 03/17/21 06:31 Consult Physician Routine Consulting Provider: [facility] Consult Reason/Comments: Post Interventional patient Do you want consulting provider notified?: Already Contacted Primary care physician: Constantin Zaman MD Hospital Course: Admitting diagnoses: * Chest pain Discharge diagnoses: * ST elevated myocardial infarction * Status post cardiac catheterization * PTCA 1 * Compensated systolic heart failure with an ejection fraction of 45-50% * History of bladder cancer 66-year-old male with past medical history of bladder in remission admitted to the hospital for chest pain and shortness of breath. Been going on and off for last several days gets severe over the last day or so the patient came to the hospital was found to have ST elevation DC underwent urgent cath and stenting. Cardiac cath revealed coronary artery disease that included 100% RCA stenosis status post PCI RCA with overlapping 4.0 x 38 mm and 3.5 x 38 mm Xience SHARON. Residual 95% stenosis OM1. Normal left-sided filling pressures. Aggressive risk factor modification per most recent ACC/ALICE guidelines. Continue dual antiplatelets for 12 months. Consider staged PCI of OM1. Echocardiogram revealed systolic heart failure with ejection fraction of 45-50%. Patient was seen and examined at bedside. Patient denies chest pain, shortness of breath, nausea, vomiting, fever, or chills. Patient is eager to go home. Vitals: Temperature 97.7F heart rate 57 respiratory rate 16 blood pressure 111/73 oxygen saturation 97% on room air. General: [non toxic], [no distress], [appears at stated age] Derm: [warm], [dry] Head: [atraumatic], [normocephalic], [symmetric] Eyes: [EOMI], [no lid lag], [anicteric sclera] Mouth: [no lip lesion], [mucus membranes moist] Cardiovascular: [S1S2 reg], [no murmur], [positive posterior tibial pulse bilateral], Lungs: [CTA bilateral], [no rhonchi, no rales] , [no accessory muscle use] Abdominal: [soft], [ nontender to palpation], [no guarding], [no appreciable organomegaly] Ext: [no gross muscle atrophy], [no edema], [no contractures] Neuro: [ CN II-XI grossly intact], [no focal neuro deficits] Psych: [Alert], [oriented], [appropriate affect] Follow-up with PCP in 2-7 days Follow-up with cardiology in 2-4 weeks Activity as tolerated Diet cardiac Disposition home Condition fair Patient Condition at Discharge: Fair Plan - Discharge Summary Discharge Rx Participant: No New Discharge Prescriptions: No Action Cholecalciferol [Vitamin D3] 50 mcg PO DAILY Azithromycin [Zithromax] 500 mg PO DAILY Famotidine [Pepcid AC] 10 mg PO DAILY Tamsulosin [Flomax] 0.4 mg PO DAILY Meloxicam [Mobic] 15 mg PO DAILY Garlic 1 tab PO DAILY Ascorbic Acid [Vitamin C] 1,000 mg PO DAILY Cephalexin [Keflex] 1,000 mg PO ONCE PRN PRN Reason: 1 HOUR PRIOR TO PROCEDURE Discharge Medication List Cholecalciferol [Vitamin D3] 50 mcg PO DAILY 05/10/15 [History] Ascorbic Acid [Vitamin C] 1,000 mg PO DAILY 03/17/21 [History] Azithromycin [Zithromax] 500 mg PO DAILY 03/17/21 [History] Cephalexin [Keflex] 1,000 mg PO ONCE PRN 03/17/21 [History] Famotidine [Pepcid AC] 10 mg PO DAILY 03/17/21 [History] Garlic 1 tab PO DAILY 03/17/21 [History] Meloxicam [Mobic] 15 mg PO DAILY 03/17/21 [History] Tamsulosin [Flomax] 0.4 mg PO DAILY 03/17/21 [History] Follow up Appointment(s)/Referral(s): Constantin Zaman MD [Primary Care Provider] - 1-2 days
[2021-03-19 11:32] VITALS: BP 107/73; PULSE 55; RESP 17; TEMP 98.1
--- NOTE | 2021-03-19 11:39 | PN ---
PROGRESS NOTE Mr. Morrison is a 66-year-old male with a history of hypertension, hyperlipidemia, who presented with an acute myocardial infarction, underwent stenting of his large right coronary artery. He had evidence of obstructive disease in the left circumflex territory. He has evidence of ischemic cardiomyopathy on his echocardiogram. He is feeling well this morning, ambulating without difficulty. Denying any chest pain. No dizziness. No palpitation. Continues to be on aspirin once a day, Lipitor 80 mg daily, Brilinta 90 mg twice a day, lisinopril 5 mg daily, metoprolol tartrate 50 mg twice a day. PHYSICAL EXAMINATION: Blood pressure running in the 1 teens with a heart rate in 50s. LUNGS: Clear. Heart regular rate and rhythm S1, S2. No S3. No rub. ABDOMEN: Soft, nontender. EXTREMITIES: No edema. LAB DATA: Lab data revealed BUN and creatinine 26, 1.24, potassium 15.7. IMPRESSION: 1. Status post acute inferior myocardial infarction with stenting of the right coronary artery in a long segment. 2. Hypertension. 3. Hyperlipidemia. 4. Obstructive disease in the left circumflex. 5. Ischemic cardiomyopathy. RECOMMENDATIONS: Patient will be discharged home today and he will be followed as an outpatient with Dr. Lzoano to be evaluated for the need to undergo percutaneous revascularization of his left circumflex territory. MMODL / IJN: [id number] /
== END 2021-03-19 12:31 | disposition home or self-care (01) | DRG 247 ==
LOC: EC 04:09 → 2SICU 04:37 → 3SCARD 03-18 20:39
PROVIDERS: ADMIT Internal Medicine; ATTEND Internal Medicine
PROC: 027035Z Dilation of Coronary Artery, One Artery with Two Drug-eluting Intraluminal Devices, Percutaneous Approach (ICD-10-PCS; principal; 2021-03-17 04:58)
PROC: 02C03ZZ Extirpation of Matter from Coronary Artery, One Artery, Percutaneous Approach (ICD-10-PCS; principal; 2021-03-17 04:58)
PROC: 4A023N7 Measurement of Cardiac Sampling and Pressure, Left Heart, Percutaneous Approach (ICD-10-PCS; principal; 2021-03-17 04:58)
PROC: B2111ZZ Fluoroscopy of Multiple Coronary Arteries using Low Osmolar Contrast (ICD-10-PCS; principal; 2021-03-17 04:58)
DX: I21.19 ST elevation (STEMI) myocardial infarction involving other coronary artery of inferior wall (principal); I50.22 Chronic systolic (congestive) heart failure; E78.5 Hyperlipidemia, unspecified; I25.5 Ischemic cardiomyopathy; I11.0 Hypertensive heart disease with heart failure; Z20.822 Contact with and (suspected) exposure to COVID-19; I25.10 Atherosclerotic heart disease of native coronary artery without angina pectoris; I08.1 Rheumatic disorders of both mitral and tricuspid valves; Z79.1 Long term (current) use of non-steroidal anti-inflammatories (NSAID); Z79.899 Other long term (current) drug therapy; Z87.891 Personal history of nicotine dependence; Z87.01 Personal history of pneumonia (recurrent); Z85.51 Personal history of malignant neoplasm of bladder; Z98.890 Other specified postprocedural states; Z83.3 Family history of diabetes mellitus; Z82.49 Family history of ischemic heart disease and other diseases of the circulatory system; Z80.41 Family history of malignant neoplasm of ovary
CPT/HCPCS: 71275; 74174; 80053; 80061; 83690; 83735; 83880; 84484; 85025; 85610; 85730; 87635; 93005; 93306; 93458; 99291

== ENCOUNTER 2021-04-20 10:08 | Day surgery (SDC) | payer MEDICARE ==
[2021-04-14 10:59] VITALS: BMI 30.3
[~2021-04-20 10:08] MED LIST: ALPRAZolam 0.25 MG TAB PO PRN; ALPRAZolam 0.5 MG TAB PO PRN; ASPIRIN 325 MG TAB PO STA; NITROGLYCERIN SL TABS 0.4 MG TAB SUBLINGUAL PRN; SODIUM CHLORIDE 0.9% 1,000 ML in EMPTY BAG 1 BAG IV SCH
[2021-04-20 10:55] VITALS: RESP 18; TEMP 99.1
[2021-04-20] MEDS ORDERED: LIDOCAINE 1% INJ 10MG/ML (20 ML MDV) ONE (11:03)
[2021-04-20 11:16] LABS: Basophils % (A) 1 %; Eosinophils # (A) 0.2 k/uL (0-0.7); Eosinophils % (A) 3 %; HCT 48.4 % (39.0-53.0); HGB 16.7 gm/dL (13.0-17.5); Lymphocytes # (A) 1.4 k/uL (1.0-4.8); Lymphocytes % (A) 24 %; MCH 33.5 pg (25.0-35.0); MCHC 34.4 g/dL (31.0-37.0); MCV 97.4 fL (80.0-100.0); Monocytes # (A) 0.4 k/uL (0-1.0); Monocytes % (A) 7 %; Neutrophils # (A) 3.6 k/uL (1.3-7.7); Neutrophils % (A) 63 %; Platelet Count 196 k/uL (150-450); RBC 4.97 m/uL (4.30-5.90); WBC 5.7 k/uL (3.8-10.6)
[2021-04-20] MEDS ORDERED: VERAPAMIL 2.5 MG/ML 2 ML AMP ONE (11:33)
[2021-04-20] MEDS ORDERED: fentaNYL (PF) 50 MCG/ML 2 ML AMP ONE (12:07)
[2021-04-20] MEDS ORDERED: HEPARIN SODIUM 1,000 UN/ML (10ML VL) ONE (12:08)
[2021-04-20 12:12] LABS: Calcium 9.8 mg/dL (8.4-10.2); Potassium 4.4 mmol/L (3.5-5.1)
[2021-04-20] MEDS ORDERED: fentaNYL (PF) 50 MCG/ML 2 ML AMP IV ONE (12:12)
[2021-04-20] MEDS ORDERED: VERAPAMIL 2.5 MG/ML 4 ML VIAL IV ONE (12:12)
[2021-04-20] MEDS ORDERED: MIDAZOLAM 2 MG/2 ML VIAL IV ONE (12:12)
[2021-04-20] MEDS ORDERED: LIDOCAINE 1% INJ 10MG/ML (20 ML MDV) SQ ONE (12:14)
[2021-04-20] MEDS: HEPARIN SODIUM 1,000 UN/ML (10ML VL) IV ONE ×2 (12:21→13:03)
[2021-04-20] MEDS ORDERED: IOPAMIDOL-370 125ML BTL INJ ONE (12:57)
[2021-04-20] MEDS ORDERED: NITROGLYCERIN 1000MCG/10ML SYRINGE INTRACORON ONE (12:58)
[2021-04-20] MEDS ORDERED: niCARdipine 25 MG/10 ML VIAL ONE (13:08)
[2021-04-20] MEDS ORDERED: IOPAMIDOL-370 100ML BTL INJ ONE (13:25)
[2021-04-20] MEDS ORDERED: ATROPINE SULFATE 0.1 MG/ML 10ML SYRINGE IV PRN (14:57)
[2021-04-20] MEDS ORDERED: MAG HYDROX/AL HYDROX/SIMETH 30 ML CUP PO PRN (14:57)
[2021-04-20] MEDS ORDERED: ZOLPIDEM 5 MG TAB PO PRN (14:57)
[2021-04-20] MEDS ORDERED: RX INFO: IV CONTRAST WAS GIVEN 1 EACH MISC MISCELLANE PRN (14:57)
[2021-04-20] MEDS ORDERED: SODIUM CHLORIDE 0.9% 1,000 ML in EMPTY BAG 1 BAG IV SCH (15:00)
[2021-04-20 17:07] VITALS: BP 122/74; PULSE 76
[2021-04-20 17:12] LABS: Calcium 9.5 mg/dL (8.4-10.2); Potassium 3.8 mmol/L (3.5-5.1)
[2021-04-20] MEDS ORDERED: METOPROLOL TARTRATE 50 MG TAB PO SCH (21:00)
[2021-04-21] MEDS ORDERED: ASPIRIN 81 MG PO SCH ×2 (09:00)
[2021-04-21] MEDS ORDERED: ATORVASTATIN 80 MG TAB PO SCH (09:00)
[2021-04-21] MEDS ORDERED: CLOPIDOGREL 75 MG TAB PO SCH ×2 (09:00)
[2021-04-21] MEDS ORDERED: TAMSULOSIN 0.4 MG CAP.ER.24H PO SCH (09:00)
[2021-04-21] MEDS ORDERED: NON FORMULARY DRUG (Cholecalciferol 1,000 UNIT Tab) PO SCH (09:00)
[2021-04-21] MEDS ORDERED: NON FORMULARY DRUG (Ascorbic Acid [Vitamin C] 1,000 MG Tablet) PO SCH (09:00)
[2021-04-21] MEDS ORDERED: lisinopriL 5 MG TAB PO SCH (09:00)
[2021-04-21] MEDS ORDERED: NON FORMULARY DRUG (Garlic [Garlic] 1 EACH Tablet) PO SCH (09:00)
[2021-04-21] MEDS ORDERED: FAMOTIDINE 10 MG PO SCH (09:00)
--- NOTE | 2021-04-21 18:15 | P.PRCINT ---
Percutaneous Coronary Int. - Percutaneous Coronary Intervention Percutaneous Coronary Intervention: PROCEDURES PERFORMED: Bilateral coronary angiography, PCI of OM2 with overlapping 2.25 x 12 and 2.25 x 8mm Xience SHARON DATE OF PROCEDURE: 04/20/2021 INDICATION: Staged PCI HISTORY: Patient is a pleasant 66 year old male with history of inferior STEMI s/p PCI of RCA and residual OM2 90% stenosis. Staged PCI was recommended CONSENT:I have discussed the risks, benefits and alternative therapies for the above-mentioned procedure and for both sedation/analgesia as well as necessary blood product administration, if indicated, as they pertain to this patient. The patient has indicated understanding and acceptance of the risks and procedures discussed. PROCEDURE: After the risks, benefits and alternatives of the above mentioned procedure explained in detail with the patient, informed consent was obtained. Patient was taken to the catheterization lab and prepped and draped in usual fashion. A 6Fr sheath was placed in the right radial artery using modified Seldinger technique. Right coronary angiography was performed with a 5Fr FR5 catheter. There was some tortuosity of the right subclavian. Next a 6Fr JL 3.5 catheter was used to engage the left main. It did sit somewhat into the circumflex and there was some dampening however careful manipulation was performed. Heparin was given for ACT > 250. Next a 0.014 BMW wire was advanced into the distal OM2. Pre balloon angioplasty was performed with a 2.0 x 12mm balloon. There was some difficulty given toruosity advancing a stent with additional dampening if guide too deep seated however eventually a 2.25 x 12mm Xience SHARON was able to be advanced and deployed. There was a more distal lesion and therefore additional 2.25 x 8mm Xience SHARON was placed. Pre intervention there was CARIN 3 flow and 90% stenosis and post intervention there was 0% s tenosis and CARIN 3 flow. The right radial sheath was removed and a TR band was placed with hemostasis achieved. The patient tolerated the procedure well. Patient was transported back to the post catheterization holding area in stable condition. Conscious Sedation: Patient was monitored under the direct supervision of vision of myself for conscious sedation using Versed and fentanyl for a total duration of 68 minutes HEMODYNAMICS: Ao: 113/54 LV: 118/4, LVEDP 8 SELECTIVE CORONARY ARTERIOGRAPHY: LEFT MAIN: The left main is large caliber and bifurcates into the LAD and circumflex. There is no significant stenosis. LEFT ANTERIOR DESCENDING CORONARY ARTERY: The LAD is a large caliber artery with a 40-50% mid LAD stenosis. LEFT CIRCUMFLEX CORONARY ARTERY: The left circumflex is a moderate caliber vessel and is nondominant. The OM1 is small caliber vessel without significant stenosis. OM2 is small caliber with 90% mid OM2 stenosis RIGHT CORONARY ARTERY: The right coronary artery is large caliber and has a patent proximal to distal RCA stent. FINAL IMPRESSION: 1. CAD as described above s/p staged PCI of OM2 with overlapping 2.25 x 12 and 2.25 x 8mm Xience SHARON 2. Low left sided filling pressures PLAN: 1. Aggressive risk factor modification per most recent ACC/AHA guidelines. 2. Continue dual antiplatelets for 12 months.
== END 2021-04-20 17:07 | disposition home or self-care (01) ==
LOC: CATHCVL 10:08
PROVIDERS: ATTEND Internal Medicine
DX: I25.10 Atherosclerotic heart disease of native coronary artery without angina pectoris (principal); I25.5 Ischemic cardiomyopathy; I25.2 Old myocardial infarction; Z20.822 Contact with and (suspected) exposure to COVID-19
CPT/HCPCS: 92928; 80048; 85025; 87635; C9600; C1769 ×3; C1887 ×3; C1894; C1874 ×2; J2250; J2001; J3010; J1644; J1642; Q9967 ×2

== ENCOUNTER → 2022-09-19 | Outpatient (CLI) | payer MEDICARE ==
--- NOTE | 2022-09-19 16:31 | US ---
EXAMINATION TYPE: US kidneys/renal and bladder DATE OF EXAM: 09/19/2022 COMPARISON: CT 03/17/2021 CLINICAL INDICATION: Male, 67 years old with history of R94.4 ABNORMAL RESULTS OF KIDNEY FUNCTION DUSTIN DIES; Abnormal labs EXAM MEASUREMENTS: Right Kidney: 8.8 x 5.3 x 4.6 cm Left Kidney: 9.7 x 4.3 x 5.2 cm Right Kidney: No evidence of hydronephrosis, only slightly smaller in size Left Kidney: Appeared wnl, no hydronephrosis. Bladder: #7 body. Bilateral Jets seen: Yes IMPRESSION: No hydronephrosis.
== END | disposition home or self-care (01) ==
LOC: RADUSWWP 15:12
PROVIDERS: ATTEND Family Medicine
DX: R94.4 Abnormal results of kidney function studies (principal)
CPT/HCPCS: 76770

== ENCOUNTER 2024-03-26 11:14 | Emergency (ER) | payer MEDICARE ==
--- NOTE | 2024-03-26 12:06 | ED ---
General Adult HPI - General Chief complaint: Recheck/Abnormal Lab/Rx Stated complaint: changes in EKG Time Seen by Provider: 03/26/24 11:49 Source: patient, RN notes reviewed Mode of arrival: ambulatory Limitations: no limitations - History of Present Illness Initial comments: Patient is a 69-year-old male present to the emergency department by primary care physician. Patient has been sick for over a week. Patient had chest discomfort at that time, but none in the past week. Patient has exertional dyspnea. No orthopnea. Patient did have a fever however that has resolved. Patient has had continuous dry cough. No calf pain or leg swelling. - Related Data Home Medications Medication Instructions Recorded Confirmed Tamsulosin [Flomax] 0.4 mg PO DAILY 03/17/21 03/26/24 Aspirin 81 mg PO DAILY 05/20/23 03/26/24 Atorvastatin [Lipitor] 80 mg PO DAILY 05/20/23 03/26/24 lisinopriL [Zestril] 5 mg PO DAILY 05/20/23 03/26/24 Famotidine [Pepcid] 20 mg PO DAILY PRN 03/26/24 03/26/24 Metoprolol Tartrate [Lopressor] 12.5 mg PO BID 03/26/24 03/26/24 Previous Rx's Medication Instructions Recorded Albuterol Inhaler [Ventolin Hfa 2 puff INHALATION Q4HR PRN #1 each 03/26/24 Inhaler] Allergies Allergy/AdvReac Type Severity Reaction Status Date / Time No Known Allergies Allergy Verified 03/26/24 13:21 Review of Systems ROS Statement: Those systems with pertinent positive or pertinent negative responses have been documented in the HPI. ROS Other: All systems not noted in ROS Statement are negative. Constitutional: Reports: as per HPI Eyes: Denies: eye pain ENT: Denies: ear pain Respiratory: Reports: as per HPI, cough, dyspnea Cardiovascular: Reports: as per HPI Endocrine: Reports: fatigue Gastrointestinal: Denies: abdominal pain Musculoskeletal: Denies: back pain Past Medical History Past Medical History: Cancer, COPD, GERD/Reflux, Hearing Disorder / Deafness, Hyperlipidemia, Hypertension, Myocardial Infarction ([place]), Osteoarthritis (OA), Pneumonia Additional Past Medical History / Comment(s): Hx bladder cancer 10/2011 with surgery and chemo. Some hearing loss. Last Myocardial Infarction Date:: 03/07/21 History of Any Multi-Drug Resistant Organisms: None Reported Past Surgical History: Bladder Surgery, Heart Catheterization With Stent, Joint Replacement Additional Past Surgical History / Comment(s): "Kidney scope", cardiac stent X4 total, left knee replacement, right shoulder replacement. Past Anesthesia/Blood Transfusion Reactions: Previous Problems w/ Anesthesia Additional Past Anesthesia/Blood Transfusion Reaction / Comment(s): With shoulder replacement had difficulty urinating after and had to have wynn catheter for a couple of days. Date of Last Stent Placement:: 04/2017 Past Psychological History: No Psychological Hx Reported Smoking Status: Former smoker Past Alcohol Use History: Occasional Past Drug Use History: None Reported - Past Family History Mother Family Medical History: Cancer, Diabetes Mellitus Additional Family Medical History / Comment(s): Heart murmur. Father Additional Family Medical History / Comment(s): AAA. Brother(s) Family Medical History: Cancer General Exam Limitations: no limitations General appearance: alert, in no apparent distress Head exam: Present: normocephalic Eye exam: Present: normal appearance ENT exam: Present: normal oropharynx Neck exam: Present: normal inspection Respiratory exam: Present: wheezes (During coughing) Cardiovascular Exam: Present: regular rate, normal rhythm Expanded Peripheral pulses: 2+: Radial (R), Radial (L), Posterior Tibialis (R), Posterior Tibialis (L) GI/Abdominal exam: Present: soft. Absent: tenderness Extremities exam: Present: normal inspection. Absent: pedal edema, calf tenderness Neurological exam: Present: alert Psychiatric exam: Present: normal affect, normal mood Skin exam: Present: normal color Course Vital Signs 03/26/24 03/26/24 03/26/24 11:25 12:00 13:00 Temperature 98.1 F Pulse Rate 99 Respiratory 20 16 15 Rate Blood Pressure 113/76 O2 Sat by Pulse 99 Oximetry EKG Findings - EKG Results: EKG: interpreted by ERMD (Left axis. Inferior Q waves. Lateral Q waves.), sinus rhythm, normal ST/T Medical Decision Making - Medical Decision Making Was pt. sent in by a medical professional or institution (, PA, AUTOMOTIVE BRAKE SPECIALIST, urgent care, hospital, or alf...) When possible be specific @ -Patient was sent in by primary care for office Did you speak to anyone other than the patient for history (EMS, parent, family, police, friend...)? What history was obtained from this source @ -No Did you review nursing and triage notes (agree or disagree)? Why? @ -I reviewed and agree with nursing and triage notes Were old charts reviewed (outside hosp., previous admission, EMS record, old EKG, old radiological studies, urgent care reports/EKG's, alf records)? Report findings @ -Previous EKG reviewed dated 03/17/[address] elevation Differential Diagnosis (chest pain, altered mental status, abdominal pain women, abdominal pain men, vaginal bleeding, weakness, fever, dyspnea, syncope, headache, dizziness, GI bleed, back pain, seizure, CVA, palpatations, mental health, musculoskeletal)? @ -Differential Dyspnea: Coronary syndrome, arrhythmia, tamponade, asthma, COPD, pulmonary embolism, pneumonia, pneumothorax, pulmonary effusion, anaphylaxis, diabetic ketoacidosis, flailed chest, pulmonary contusion, diaphragmatic rupture, anemia, neuromuscular, this is not meant to be an all-inclusive list. EKG interpreted by me (3pts min.). @ -As above X-rays interpreted by me (1pt min.). @ -Chest x-ray shows no acute process CT interpreted by me (1pt min.). @ -CT scan shows no embolism. Nodule present U/S interpreted by me (1pt. min.). @ -None done What testing was considered but not performed or refused? (CT, X-rays, U/S, labs)? Why? @ -None What meds were considered but not given or refused? Why? @ -None Did you discuss the management of the patient with other professionals (professionals i.e. , PA, AUTOMOTIVE BRAKE SPECIALIST, lab, RT, psych nurse, social service worker, video tape duplicator, teacher, assault amphibious vehicle officer, piano case and bench assembler)? Give summary @ -No Was smoking cessation discussed for >3mins.? @ -No Was critical care preformed (if so, how long)? @ -No Were there social determinants of health that impacted care today? How? (Homelessness, low income, unemployed, alcoholism, drug addiction, transportation, low edu. Level, literacy, decrease access to med. care, half-way, rehab)? @ -No Was there de-escalation of care discussed even if they declined (Discuss DNR or withdrawal of care, Hospice)? DNR status @ -No What co-morbidities impacted this encounter? (DM, HTN, Smoking, COPD, CAD, Cancer, CVA, ARF, Chemo, Hep., AIDS, mental health diagnosis, sleep apnea, morbid obesity)? @ -History of COPD Was patient admitted / discharged? Hospital course, mention meds given and route, prescriptions, significant lab abnormalities, going to OR and other pertinent info. @ -Patient presents with dyspnea. Patient had some chest discomfort with dyspnea a week ago. Troponin and EKG unremarkable. EKG is improved compared to previous. Patient has not had no chest discomfort in the past week. Positive RSV. Patient will be discharged with inhaler Undiagnosed new problem with uncertain prognosis? @ -No Drug Therapy requiring intensive monitoring for toxicity (Heparin, Nitro, Insulin, Cardizem)? @ -No Were any procedures done? @ -No Diagnosis/symptom? @ -RSV Acute, or Chronic, or Acute on Chronic? @ -Acute Uncomplicated (without systemic symptoms) or Complicated (systemic symptoms)? @ -Default Side effects of treatment? @ -No Exacerbation, Progression, or Severe Exacerbation? @ -No Poses a threat to life or bodily function? How? (Chest pain, [place], [place], pneumonia, PE, COPD, DKA, ARF, appy, cholecystitis, CVA, Diverticulitis, Homicidal, Suicidal, threat to staff... and all critical care pts) @ -Threat to pulmonary function - Lab Data Result diagrams: 03/26/24 12:03/26/24 12: Lab Results 03/26/24 03/26/24 03/26/24 Range/Units 12: 12: 12: WBC 4.3 (3.8-10.6) k/uL RBC 5.30 (4.30-5.90) m/uL Hgb 17.3 (13.0-17.5) gm/dL Hct 50.4 (39.0-53.0) % MCV 95.0 (80.0-100.0) fL MCH 32.7 (25.0-35.0) pg MCHC 34.4 (31.0-37.0) g/dL RDW 12.3 (11.5-15.5) % Plt Count 171 (150-450) k/uL MPV 7.7 Neutrophils % (Manual) 48 % Lymphocytes % (Manual) 47 % Monocytes % (Manual) 4 % Eosinophils % (Manual) 1 % Neutrophils # (Manual) 2.06 (1.3-7.7) k/uL Lymphocytes # (Manual) 2.02 (1.0-4.8) k/uL Monocytes # (Manual) 0.17 (0-1.0) k/uL Eosinophils # (Manual) 0.04 (0-0.7) k/uL Nucleated RBCs 0 (0-0) /100 WBC Manual Slide Review Performed RBC Morphology Normal PT 10.8 (10.0-12.5) sec INR 1.0 (<1.2) APTT 24.6 (22.0-30.0) sec D-Dimer 0.94 H (<0.60) mg/L FEU Sodium 137 (137-145) mmol/L Potassium 3.9 (3.5-5.1) mmol/L Chloride 101 (98-107) mmol/L Carbon Dioxide 27 (22-30) mmol/L Anion Gap 9 mmol/L BUN 21 H (9-20) mg/dL Creatinine 1.44 H (0.66-1.25) mg/dL Est GFR (CKD-EPI)AfAm 57 (>60 ml/min/1.73 sqM) Est GFR (CKD-EPI)NonAf 50 (>60 ml/min/1.73 sqM) Glucose 116 H (74-99) mg/dL Calcium 9.8 (8.4-10.2) mg/dL Magnesium 2.3 (1.6-2.3) mg/dL Total Bilirubin 0.8 (0.2-1.3) mg/dL AST 32 (17-59) U/L ALT 29 (4-49) U/L Alkaline Phosphatase 102 (38-126) U/L Troponin I (0.000-0.034) ng/mL NT-Pro-B Natriuret Pep 193 pg/mL Total Protein 7.4 (6.3-8.2) g/dL Albumin 4.7 (3.5-5.0) g/dL Influenza Type A (PCR) (Not Detectd) Influenza Type B (PCR) (Not Detectd) RSV (PCR) (Not Detectd) SARS-CoV-2 (PCR) (Not Detectd) 03/26/24 03/26/24 Range/Units 12:27 12:27 WBC (3.8-10.6) k/uL RBC (4.30-5.90) m/uL Hgb (13.0-17.5) gm/dL Hct (39.0-53.0) % MCV (80.0-100.0) fL MCH (25.0-35.0) pg MCHC (31.0-37.0) g/dL RDW (11.5-15.5) % Plt Count (150-450) k/uL MPV Neutrophils % (Manual) % Lymphocytes % (Manual) % Monocytes % (Manual) % Eosinophils % (Manual) % Neutrophils # (Manual) (1.3-7.7) k/uL Lymphocytes # (Manual) (1.0-4.8) k/uL Monocytes # (Manual) (0-1.0) k/uL Eosinophils # (Manual) (0-0.7) k/uL Nucleated RBCs (0-0) /100 WBC Manual Slide Review RBC Morphology PT (10.0-12.5) sec INR (<1.2) APTT (22.0-30.0) sec D-Dimer (<0.60) mg/L FEU Sodium (137-145) mmol/L Potassium (3.5-5.1) mmol/L Chloride (98-107) mmol/L Carbon Dioxide (22-30) mmol/L Anion Gap mmol/L BUN (9-20) mg/dL Creatinine (0.66-1.25) mg/dL Est GFR (CKD-EPI)AfAm (>60 ml/min/1.73 sqM) Est GFR (CKD-EPI)NonAf (>60 ml/min/1.73 sqM) Glucose (74-99) mg/dL Calcium (8.4-10.2) mg/dL Magnesium (1.6-2.3) mg/dL Total Bilirubin (0.2-1.3) mg/dL AST (17-59) U/L ALT (4-49) U/L Alkaline Phosphatase (38-126) U/L Troponin I <0.012 (0.000-0.034) ng/mL NT-Pro-B Natriuret Pep pg/mL Total Protein (6.3-8.2) g/dL Albumin (3.5-5.0) g/dL Influenza Type A (PCR) Not Detected (Not Detectd) Influenza Type B (PCR) Not Detected (Not Detectd) RSV (PCR) Detected A (Not Detectd) SARS-CoV-2 (PCR) Not Detected (Not Detectd) Disposition Clinical Impression: RSV infection Disposition: HOME SELF-CARE Condition: Stable Instructions (If sedation given, give patient instructions): COPD (Chronic Obstructive Pulmonary Disease) (ED), Respiratory Syncytial Virus (ED) Additional Instructions: Please do follow-up with your primary care physician in the next couple days for recheck. Have primary care physician review CT results and reschedule monitoring CT scan. Prescription for inhaler sent to pharmacy. Return for fevers, difficulty breathing, chest pain, worsening symptoms or other concerns. Prescriptions: Albuterol Inhaler [Ventolin Hfa Inhaler] 2 puff INHALATION Q4HR PRN #1 each PRN Reason: Dyspnea Is patient prescribed a controlled substance at d/c from ED?: No Referrals: Tyrone Sands MD [Primary Care Provider] - 1-2 days Time of Disposition: 14:41
--- NOTE | 2024-03-26 12:26 | XR ---
Chest, 2 view. HISTORY: Chest pain COMPARISON: None TECHNIQUE: PA and lateral views the chest are obtained. FINDINGS: The lungs are clear and there is no consolidative or interstitial opacity. There is no pleural effusion or pneumothorax. The heart, pulmonary vasculature, mediastinum and mariana appear normal. There is a reverse right shoulder prosthesis. IMPRESSION: No acute cardiopulmonary disease. [facility], Workstation: [facility], 03/26/2024 12:24 PM
[2024-03-26 12:59] LABS: Partial Thromboplastin Time 24.6 sec (22.0-30.0); Prothrombin Time 10.8 sec (10.0-12.5)
[2024-03-26 13:06] LABS: ALT 29 U/L (4-49); AST 32 U/L (17-59); African American GFR (CKD) 57 (>60 ml/min/1.73 sqM); Albumin 4.7 g/dL (3.5-5.0); Alkaline Phosphatase 102 U/L (38-126); Anion Gap 9 mmol/L; Blood Urea Nitrogen 21 mg/dL (9-20); Calcium 9.8 mg/dL (8.4-10.2); Carbon Dioxide 27 mmol/L (22-30); Chloride 101 mmol/L (98-107); Glucose 116 mg/dL (74-99); Magnesium 2.3 mg/dL (1.6-2.3); Non-African American GFR(CKD) 50 (>60 ml/min/1.73 sqM); Potassium 3.9 mmol/L (3.5-5.1); Sodium 137 mmol/L (137-145); Total Bilirubin 0.8 mg/dL (0.2-1.3); Total Protein 7.4 g/dL (6.3-8.2)
[2024-03-26 13:13] LABS: NT-Pro-B-Type Natriuretic Pept 193 pg/mL
[2024-03-26 13:16] LABS: HCT 50.4 % (39.0-53.0); HGB 17.3 gm/dL (13.0-17.5); MCH 32.7 pg (25.0-35.0); MCHC 34.4 g/dL (31.0-37.0); Mean Platelet Volume 7.7; Platelet Count 171 k/uL (150-450); RDW 12.3 % (11.5-15.5); WBC 4.3 k/uL (3.8-10.6)
[2024-03-26 13:25] LABS: Eosinophils # (M) 0.04 k/uL (0-0.7); Lymphocytes # (M) 2.02 k/uL (1.0-4.8); Monocytes # (M) 0.17 k/uL (0-1.0); Neutrophils # (M) 2.06 k/uL (1.3-7.7); Neutrophils % (M) 48 %; Nucleated Red Blood Cells 0 /100 WBC (0-0); RBC Morphology Normal; Total Cells Counted 100
--- NOTE | 2024-03-26 14:04 | CT ---
EXAMINATION TYPE: CT angio chest CT DLP: 471 mGycm, Automated exposure control for dose reduction was used. DATE OF EXAM: 03/26/2024 1:55 PM COMPARISON: Chest radiograph 03/26/2024, CTA thoracoabdominal pelvis aorta 03/17/2021 CLINICAL INDICATION:Male, 69 years old with history of dwain; DWAIN and elevated d-dimer TECHNIQUE/CONTRAST: CTA scan of the thorax is performed with IV Contrast, patient injected with 80ml mL of Isovue 370, pu lmonary embolism protocol. MIP images are created and reviewed. FINDINGS: Pulmonary Artery: There is no evidence for a filling defect within the pulmonary vasculature to sugge st acute pulmonary embolism. The pulmonary artery is of normal size. Lungs/Pleura: No evidence of pleural effusion or pneumothorax. Right upper lobe peripheral calcificat ion granuloma. Right upper lobe 7 mm groundglass nodule which is new from prior exam (series [id number], michelle ge 41). Airway: Large airways are patent. Heart: Heart is within normal limits for size.. Coronary artery calcifications. Trace pericardial eff usion. Vasculature: No evidence of aortic aneurysm. Mediastinum: No evidence of adenopathy. Musculoskeletal: No acute osseous abnormalities. Postsurgical changes from right shoulder arthroplast y. Multilevel degenerative changes of the thoracic spine. Soft Tissues: Unremarkable. Lower neck: No significant findings. Upper Abdomen: Stable hepatic cysts. Prominent right extrarenal pelvis. Tiny hiatal hernia. IMPRESSION: 1. No evidence of pulmonary embolism. 2. Nonspecific right upper lobe 7 mm groundglass nodule. Follow-up CT chest in 6-12 months is recomme madeline. [facility], , 03/26/2024 2:01 PM
[2024-03-26] MEDS: ALBUTEROL HFA INHALER INHALATION STA (15:28)
[2024-03-26 15:41] VITALS: BP 110/76; PULSE 89; RESP 16; TEMP 97.1
== END 2024-03-26 15:43 | disposition home or self-care (01) ==
LOC: EC 11:14
DX: R05.9 Cough, unspecified (principal); B97.4 Respiratory syncytial virus as the cause of diseases classified elsewhere; J44.9 Chronic obstructive pulmonary disease, unspecified; Z87.891 Personal history of nicotine dependence
CPT/HCPCS: 36415; 94640; 93005; 85379; 83880; 80053; 83735; 84484; 85025; 85610; 85730; 87636; 71046; 71275; 99285; Q9967

== ENCOUNTER 2024-06-23 13:42 | Emergency (ER) | payer MEDICARE ==
[2024-06-23 13:50] VITALS: RESP 18; TEMP 97.7
--- NOTE | 2024-06-23 14:07 | ED ---
Chest Pain HPI - General Source: patient Mode of arrival: ambulatory Limitations: no limitations <Adrien Pool - Last Filed: 06/23/24 16:07> <Pankaj Rocha - Last Filed: 06/23/24 20:18> - General Chief Complaint: Chest Pain Stated Complaint: Chest pain - History of Present Illness Initial Comments: Patient is a 69-year-old male with GERD, hyperlipidemia, hypertension, history of DC, history of pneumonia, COPD presented to ER with chest pain that started last night while patient was resting in bed. Patient describes the chest pain to be constant, does not move anywhere and has gradually improved compared to yesterday. Patient reports the chest pain gets worse with inhalation. No pain during palpation of the chest wall. Patient has not tried any medications thus far. He has been taking his home home medications as prescribed. Denies fever, chills, cough, runny nose, sore throat, nausea, vomiting, palpitations, belly pain, diarrhea, constipation. Patient recently recovered from COVID about a week ago. Denies any recent trauma or injuries. Denies recent surgeries. (Adrien Pool) - Related Data Home Medications Medication Instructions Recorded Confirmed Tamsulosin [Flomax] 0.4 mg PO DAILY 03/17/21 06/23/24 Aspirin 81 mg PO DAILY 05/20/23 06/23/24 Atorvastatin [Lipitor] 80 mg PO DAILY 05/20/23 06/23/24 lisinopriL [Zestril] 5 mg PO DAILY 05/20/23 06/23/24 Famotidine [Pepcid] 20 mg PO DAILY PRN 03/26/24 06/23/24 Metoprolol Tartrate [Lopressor] 12.5 mg PO BID 03/26/24 06/23/24 Albuterol Inhaler [Ventolin Hfa 2 puff INHALATION RT-Q4H PRN 06/23/24 06/23/24 Inhaler] Allergies Allergy/AdvReac Type Severity Reaction Status Date / Time No Known Allergies Allergy Verified 06/23/24 17:23 Review of Systems ROS Other: All systems not noted in ROS Statement are negative. Constitutional: Denies: fever, chills Respiratory: Denies: cough, dyspnea, wheezes Cardiovascular: Reports: chest pain. Denies: palpitations, dyspnea on exertion, orthopnea Gastrointestinal: Denies: abdominal pain, nausea, vomiting, diarrhea, constipation <YrnAdrien - Last Filed: 06/23/24 16:07> ROS Other: All systems not noted in ROS Statement are negative. <AjPankaj - Last Filed: 06/23/24 20:18> ROS Statement: Those systems with pertinent positive or pertinent negative responses have been documented in the HPI. Past Medical History Past Medical History: Cancer, COPD, GERD/Reflux, Hearing Disorder / Deafness, Hyperlipidemia, Hypertension, Myocardial Infarction (DC), Osteoarthritis (OA), Pneumonia Additional Past Medical History / Comment(s): Hx bladder cancer 10/2011 with surgery and chemo. Some hearing loss. Last Myocardial Infarction Date:: 03/07/21 History of Any Multi-Drug Resistant Organisms: None Reported Past Surgical History: Bladder Surgery, Heart Catheterization With Stent, Joint Replacement Additional Past Surgical History / Comment(s): "Kidney scope", cardiac stent X4 total, left knee replacement, right shoulder replacement. Past Anesthesia/Blood Transfusion Reactions: Previous Problems w/ Anesthesia Additional Past Anesthesia/Blood Transfusion Reaction / Comment(s): With shoulder replacement had difficulty urinating after and had to have wynn catheter for a couple of days. Date of Last Stent Placement:: 04/2017 Past Psychological History: No Psychological Hx Reported Smoking Status: Former smoker Past Alcohol Use History: Occasional Past Drug Use History: None Reported - Past Family History Mother Family Medical History: Cancer, Diabetes Mellitus Additional Family Medical History / Comment(s): Heart murmur. Father Additional Family Medical History / Comment(s): AAA. Brother(s) Family Medical History: Cancer <YrnAdrien - Last Filed: 06/23/24 16:07> General Exam Limitations: no limitations <YrnAdrien - Last Filed: 06/23/24 16:07> - General Exam Comments Initial Comments: GENERAL: This is a 69-year-old in no apparent distress at the time of examination. Pleasant and cooperative. HEENT: Head is atraumatic, normocephalic. Pupils are equal, round, and reactive to light. Sclerae anicteric. Conjunctivae are clear. Mucus membranes of the mouth are moist. Neck is supple. RESPIRATORY: Clear to auscultation. No wheezes, rales, or rhonchi. No use of accessory muscles. Patient maintaining oxygen saturation greater than 92%. CARDIOVASCULAR: Regular rate and rhythm. S1 and S2 noted. No systolic or diastolic murmur auscultated. GASTROINTESTINAL: No distention noted. Abdomen soft and round. No abdominal tenderness upon palpation. INTEGUMENTARY: No cyanosis. No jaundice. No rashes noted. No cellulitis noted. EXTREMITIES: No evidence of peripheral edema. No calf tenderness noted. NEUROLOGIC: Cranial nerves II-XII intact. PSYCHIATRIC: Awake, alert, and oriented X 3. Appropriate affect. Intact judgement and insight. (Adrien Pool) Course Vital Signs 06/23/24 06/23/24 06/23/24 13:47 17:11 18:35 Temperature 97.7 F Pulse Rate 57 L 60 55 L Respiratory 18 18 18 Rate Blood Pressure 146/66 118/80 148/82 O2 Sat by Pulse 99 97 98 Oximetry Chest Pain MDM <Adrien Pool - Last Filed: 06/23/24 16:07> <Pankaj Rocha - Last Filed: 06/23/24 20:18> - MDM Was pt. sent in by a medical professional or institution (, PA, [employer], urgent care, hospital, or halfway...) When possible be specific @ -No Did you speak to anyone other than the patient for history (EMS, parent, family, police, friend...)? What history was obtained from this source @ -No Did you review nursing and triage notes (agree or disagree)? Why? @ -I reviewed and agree with nursing and triage notes Were old charts reviewed (outside hosp., previous admission, EMS record, old EKG, old radiological studies, urgent care reports/EKG's, halfway records)? Report findings @ -No old charts were reviewed Differential Diagnosis? @ -Chest pain, ACS, pericarditis, pulmonary embolism EKG interpreted by me (3pts min.). @ -Sinus bradycardia with ventricular rate of 51 bpm, QTc interval 380 ms, no ST elevation or depression. X-rays interpreted by me (1pt min.). @ -Chest x-ray showed no acute cardiopulmonary disease/process. CT interpreted by me (1pt min.). @ -None done U/S interpreted by me (1pt. min.). @ -None done What testing was considered but not performed or refused? (CT, X-rays, U/S, labs)? Why? @ -None What meds were considered but not given or refused? Why? @ -None Did you discuss the management of the patient with other professionals (professionals i.e. , PA, [employer], lab, RT, psych nurse, social work therapist, maxillofacial surgeon, teacher, bsa/aml compliance officer, telephonic nurse case manager)? Give summary @ -Discussed with Dr. Rocha Was smoking cessation discussed for >3mins.? @ -No Was critical care preformed (if so, how long)? @ -No Were there social determinants of health that impacted care today? How? (Homelessness, low income, unemployed, alcoholism, drug addiction, transportation, low edu. Level, literacy, decrease access to med. care, [place] [facility], rehab)? @ -No Was there de-escalation of care discussed even if they declined (Discuss DNR or withdrawal of care, Hospice)? DNR status @ -No What co-morbidities impacted this encounter? (DM, HTN, Smoking, COPD, CAD, Cancer, CVA, ARF, Chemo, Hep., AIDS, mental health diagnosis, sleep apnea, morbid obesity)? @ -GERD, hyperlipidemia, hypertension, history of DC, history of pneumonia, COPD Was patient admitted / discharged? Hospital course, mention meds given and route, prescriptions, significant lab abnormalities, going to OR and other pertinent info. @ -69-year-old male history of hypertension, hyperlipidemia, history of DC presented to the ED with chest pain that started last night while resting in bed. EKG showed sinus bradycardia with ventricular rate of 51 bpm, QTc interval 380 ms, no ST elevation with depression. Chest x-ray showed no acute cardiopulmonary disease/process. CBC and CMP showed slightly elevated creatinine 1.33 however comparable to previous visits. Viral respiratory panel tested negative for COVID, RSV, flu. Troponin less than 0.012. Pending D-dimer results. Have signed off this patient to Dr. Rocha. Undiagnosed new problem with uncertain prognosis? @ -No Drug Therapy requiring intensive monitoring for toxicity (Heparin, Nitro, Insulin, Cardizem)? @ -No Were any procedures done? @ -No Diagnosis/symptom? @ -Chest pain Acute, or Chronic, or Acute on Chronic? @ -Acute Uncomplicated (without systemic symptoms) or Complicated (systemic symptoms)? @ -Uncomplicated Side effects of treatment? @ -No Exacerbation, Progression, or Severe Exacerbation? @ -No Poses a threat to life or bodily function? How? (Chest pain, USA, DC, pneumonia, PE, COPD, DKA, ARF, appy, cholecystitis, CVA, Diverticulitis, Homicidal, Suicidal, threat to staff... and all critical care pts) @ -No (Adrien Pool) I personally saw the patient and performed the critical portion of the service. I discussed the patient care with the resident. I directed management, care planning and final disposition of the patient. This includes, but not limited to, review of all lab work, radiological studies, EKG's, consultations, vital signs, and nursing notes. EKG interpreted by me (3pts min.) @As above X-Rays interpreted by me (1 pt min.) @Chest x-ray reveals no obvious acute cardiopulmonary process. CT interpreted by me ( 1pt min.) @CT PE negative for pulmonary embolism. U/S interpreted by me (1 pt min.) @None Patient signed out to me pending results of D-dimer. Workup so far for chest pain unremarkable including undetectable troponin and EKG within acceptable limits. D-dimer was slightly elevated for patient's age. Therefore we will obtain CT PE. CT PE negative for any obvious acute pulmonary embolism. Patient was given Toradol as well as aspirin. Patient is chest pain after discussion seems more chest wall pain and pleuritic. States that it started when he reached over and he felt something pop next to his sternum. Worse with deep breath and as well as certain movements and positions. It is reproducible on palpation. I did discuss options with the patient I did offer and recommend admission to the hospital but patient states he would like to try to go home. I did offer an alternative of obtaining a 3-hour troponin repeat EKG as symptoms have resolved with medications and he was in agreement this plan. 3-hour troponin remains undetectable and repeat EKG remains unremarkable. Patient will be discharged home at this time after I once again discussed possibility of admission. He feels comfortable going home. I believe this is reasonable considering his unremarkable workup as well as symptoms representing likely chest wall pain. Strict return precautions discussed. 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 . I instructed the patient to follow up with their PCP in the next 1-3 days. I explained that the patient should return to the emergency department if they experience any worsening symptoms. Strict return precautions were discussed with the patient. The patient expressed understanding of these instructions. I answered all questions that the patient had. The patient was discharged home in good condition with their prescriptions and follow up information. Diagnosis/symptom? @ -Chest wall pain, pleurisy Acute, or Chronic, or Acute on Chronic? @ -Acute Uncomplicated (without systemic symptoms) or Complicated (systemic symptoms)? @ -Uncomplicated Side effects of treatment? @ -None Exacerbation, Progression, or Severe Exacerbation] @ -No Poses a threat to life or bodily function? @ -Unlikely at this time (Pankaj Rocha) Disposition Is patient prescribed a controlled substance at d/c from ED?: No <Adrien Pool - Last Filed: 06/23/24 16:07> Is patient prescribed a controlled substance at d/c from ED?: No Time of Disposition: 20:02 <Pankaj Rocha - Last Filed: 06/23/24 20:18> Clinical Impression: Chest wall pain, Pleurisy Disposition: HOME SELF-CARE Condition: Good Instructions (If sedation given, give patient instructions): Chest Pain (ED), Costochondritis (ED) Additional Instructions: Every disease is a spectrum and a small chance still exists that a serious condition could develop, for this reason, please monitor yourself closely for new, changing or worsening symptoms, new confusion, changes in behavior, severe headache, changes in vision, numbness, weakness, chest pain, fever, inability to tolerate/keep down fluids or your medications, inability to follow up with outpatient providers as instructed and should you experience these symptoms or should you have any further concerns for your wellbeing please return to the ED or call 911 immediately. PLEASE call your primary care physician as soon as possible to arrange / discuss plan for followup appointment. Appointment in the next 1-3 days is strongly encouraged if possible. PLEASE let us know here before you leave if there is anything further we can do to be of any assistance. Take care and feel Better! Referrals: Tyrone Sands MD [Primary Care Provider] - 1-2 days
[2024-06-23 15:04] LABS: Basophils % (A) 1 %; Eosinophils # (A) 0.3 k/uL (0-0.7); Eosinophils % (A) 5 %; HCT 46.3 % (39.0-53.0); HGB 15.7 gm/dL (13.0-17.5); Lymphocytes # (A) 1.3 k/uL (1.0-4.8); Lymphocytes % (A) 25 %; MCH 32.1 pg (25.0-35.0); MCV 94.4 fL (80.0-100.0); Mean Platelet Volume 6.8; Monocytes # (A) 0.3 k/uL (0-1.0); Monocytes % (A) 6 %; Neutrophils # (A) 3.3 k/uL (1.3-7.7); Neutrophils % (A) 62 %; Platelet Count 267 k/uL (150-450); RDW 12.4 % (11.5-15.5); WBC 5.2 k/uL (3.8-10.6)
[2024-06-23 15:19] LABS: ALT 34 U/L (4-49); AST 33 U/L (17-59); African American GFR (CKD) 57 (>60 ml/min/1.73 sqM); Albumin 4.4 g/dL (3.5-5.0); Alkaline Phosphatase 88 U/L (38-126); Anion Gap 10 mmol/L; Blood Urea Nitrogen 21 mg/dL (9-20); Calcium 10.2 mg/dL (8.4-10.2); Carbon Dioxide 27 mmol/L (22-30); Chloride 102 mmol/L (98-107); Glucose 99 mg/dL (74-99); Magnesium 2.1 mg/dL (1.6-2.3); Non-African American GFR(CKD) 50 (>60 ml/min/1.73 sqM); Potassium 4.3 mmol/L (3.5-5.1); Sodium 139 mmol/L (137-145); Total Bilirubin 0.5 mg/dL (0.2-1.3); Total Protein 7.3 g/dL (6.3-8.2)
[2024-06-23 15:24] LABS: INR 0.9 (<1.2); Partial Thromboplastin Time 23.2 sec (22.0-30.0); Prothrombin Time 10.6 sec (10.0-12.5)
[2024-06-23 15:38] LABS: Influenza A Not Detected (Not Detectd); Influenza B Not Detected (Not Detectd); RSV Not Detected (Not Detectd)
--- NOTE | 2024-06-23 15:44 | XR ---
EXAMINATION TYPE: XR chest 2V DATE OF EXAM: 06/23/2024 3:40 PM COMPARISON: Chest radiographs from 03/26/2024 TECHNIQUE: XR chest 2V Frontal and lateral views of the chest. CLINICAL INDICATION:Male, 69 years old with history of Chest Pain; FINDINGS: Lungs/Pleura: There is no evidence of pleural effusion, focal consolidation, or pneumothorax. Pulmonary vascularity: Unremarkable. Heart/mediastinum: Cardiomediastinal silhouette is unremarkable. Musculoskeletal: No acute osseous pathology. Right shoulder arthroplasty change. Degenerative changes of the mid thoracic spine. IMPRESSION: No acute cardiopulmonary disease/process. [facility], , 06/23/2024 3:41 PM
--- NOTE | 2024-06-23 18:28 | CT ---
EXAMINATION TYPE: CT chest angio for PE DATE OF EXAM: 06/23/2024 6:08 PM COMPARISON: 03/26/2024 CLINICAL INDICATION: Male, 69 years old with history of eval for PE. pleuritic left sided chest pain; Pt c/o left sided chest pain, worsens with breathing. TECHNIQUE/CONTRAST: CTA scan of the thorax is performed with IV Contrast, patient injected with 80ml mL of Isovue 370, DE P images are created and reviewed these are created on a separate workstation.. CT DLP: 480.9 mGycm, Automated exposure control for dose reduction was used. FINDINGS: Lungs/Pleura: No evidence of focal consolidation, pleural effusion or pneumothorax. Right upper lobe calcified granuloma. Airway: Large airways are patent. Heart: Size within normal limits. Coronary artery atherosclerotic changes and stents present. Vasculature: There is no evidence for a filling defect within the pulmonary vasculature to suggest ac [place] pulmonary embolism. The pulmonary artery is of normal size. Mediastinum: No gross evidence of adenopathy. Musculoskeletal: Mild disc degeneration changes are present throughout the thoracolumbar spine second veronica to osteophyte formation and facet joint arthropathy. Right shoulder arthroplasty appears intact. Soft Tissues/lymph nodes: Unremarkable. Lower neck: No significant findings. Upper Abdomen: No significant findings. IMPRESSION: No evidence of pulmonary embolism. Follow up recommendations for incidental pulmonary nodules, if there are any, are per [employer] or [employer]. https://radiopaedia.org/articles/agzvorautt-upehviy-[email or web address]-[email or web address]?lang=us [facility], , 06/23/2024 6:26 PM
[2024-06-23] MEDS: KETOROLAC 15 MG/ML 1 ML VIAL IVP STA (18:32)
[2024-06-23] MEDS: ASPIRIN 81 MG PO STA (18:32)
[2024-06-23 18:37] VITALS: BP 148/82; PULSE 55
== END 2024-06-23 20:22 | disposition home or self-care (01) ==
LOC: EC 13:42
DX: R09.1 Pleurisy (principal); R00.1 Bradycardia, unspecified; K21.9 Gastro-esophageal reflux disease without esophagitis; E78.5 Hyperlipidemia, unspecified; I10 Essential (primary) hypertension; J44.9 Chronic obstructive pulmonary disease, unspecified; I25.2 Old myocardial infarction; Z87.01 Personal history of pneumonia (recurrent); Z87.891 Personal history of nicotine dependence; Z79.82 Long term (current) use of aspirin; Z79.899 Other long term (current) drug therapy; Z95.5 Presence of coronary angioplasty implant and graft
CPT/HCPCS: 36415; 93005; 85379; 80053; 83735; 84484; 85025; 85610; 85730; 87636; 71046; 71275; 99285; 96374; J1885; Q9967

== ENCOUNTER → 2024-10-12 | Outpatient (CLI) | payer MEDICARE ==
--- NOTE | 2024-10-12 09:23 | CT ---
EXAMINATION TYPE: CT chest wo con DATE OF EXAM: 10/12/2024 8:44 AM COMPARISON: 06/23/2024. CLINICAL INDICATION: Male, 69 years old with history of R91.1 SOLIT PULMONARY NODULE; PHH, Lung nodul es TECHNIQUE: Multiple axial images were obtained through the chest. Sagittal and coronal reformats were created for review. MIP was performed on a separate workstation. Contrast used: mL of (None if empty) Oral contrast used: (None if empty) CT DLP: 520 mGycm, Automated exposure control for dose reduction was used. FINDINGS: LUNGS/ PLEURA: No focal consolidation, pneumothorax or pleural effusion. 3 mm upper lobe calcified gr anuloma is stable series 3 image 11 AIRWAY: Patent and unremarkable. HEART: Size within normal limits. Severe coronary artery calcifications present. MEDIASTINUM: No gross evidence of adenopathy. VASCULATURE: No aortic aneurysm. MUSCULOSKELETAL: Severe disc degeneration changes are present throughout the thoracolumbar spine seco ndary to osteophyte formation and facet joint arthropathy. Right shoulder arthroplasty appears intact . Multilevel wedging throughout the spine similar prior. SOFT TISSUES/LYMPH NODES: Unremarkable. LOWER NECK: No significant findings. UPPER ABDOMEN: Mild right hydronephrosis. IMPRESSION: 1. No evidence for acute process. 2. Stable right upper lobe calcified granuloma. 3. Simple appearing left hepatic lobe cyst measuring 15 mm. No evidence for acute process. 4. Moderate coronary artery atherosclerosis. 5. Mild right wrist and dilation similar to prior. [facility], , 10/12/2024 9:20 AM
== END | disposition home or self-care (01) ==
LOC: RADCTMAIN 08:14
PROVIDERS: ATTEND Family Medicine
DX: R91.1 Solitary pulmonary nodule (principal); J84.10 Pulmonary fibrosis, unspecified; K76.89 Other specified diseases of liver; I25.10 Atherosclerotic heart disease of native coronary artery without angina pectoris
CPT/HCPCS: 71250